=== PATIENT | male | born 1985 | race African-American/Black ===

== ENCOUNTER 2016-07-20 13:58 | Emergency (ER) | payer MEDICAID ==
[~2016-07-20] VITALS: Ht 170.2 cm; Wt 94.3 kg
[2016-07-20 14:21] VITALS: BP 137/79
[2016-07-20] MEDS ORDERED: Famotidine 20 MG/ 2ML VIAL IVP ONE (14:30)
--- NOTE | 2016-07-20 14:32 | Emergency Room Report ---
History of Present Illness General Chief Complaint: Abdominal Pain Source: Patient (Nahun Bauer M.D.) Present Illness HPI Patient presents with 2 days of vomiting he also feels weak because he hasn't been able to keep anything down. He tried Pepto-Bismol but threw that back up. He has epigastric pain and also a feeling of wooziness stent in his epigastric area. Does not radiate towards his back. Denies any diarrhea. He denies fevers or chills. He's not had a cough or sore throat. He also feels tingling and also like his throat is closing up when he gets short of breath. He denies alcohol. He's never had this before. No headache, rashes, joint pain, unilateral weakness. (Nahun Bauer M.D.) Allergies: Coded Allergies: PENICILLINS (Verified Allergy, Unknown, 07/20/16) SULFAMETHOXAZOLE (Verified Allergy, Unknown, 07/20/16) TRIMETHOPRIM (Verified Allergy, Unknown, 07/20/16) Uncoded Allergies: PENECILLIN (Allergy, Unknown, 07/20/16) Patient History Past Medical History: see triage record Social History: Reports: smoking, Denies: alcohol use Social History Narrative with girlfriend Reviewed Nursing Documentation: PMH: Agreed, PSxH: Agreed (Nahun Bauer M.D.) Nursing Documentation-PM Past Medical History: No Stated History (Nahun Bauer M.D.) Physical Exam Vital Signs Date Time Temp Pulse Resp B/P Pulse Ox O2 Delivery O2 Flow Rate FiO2 07/20/16 14:11 97.9 72 22 134/83 99 Room Air Sp02 EP Interpretation: reviewed, normal General Appearance: well appearing, no apparent distress, GCS 15 Head: normocephalic Eyes: bilateral eye PERRL, bilateral eye normal inspection ENT: moist mucus membranes Neck: supple Respiratory: lungs clear, normal breath sounds Cardiovascular #1: regular rate, rhythm Cardiovascular #2: 2+ radial (R) Gastrointestinal: normal inspection, normal bowel sounds, no mass, non- distended, no guarding, no rebound, tenderness - epigastric area Musculoskeletal: back normal, gait/station normal, normal range of motion Neurologic: alert, oriented x3, motor strength/tone normal, DTRs symmetric, sensory intact Psychiatric: anxious, other - tears Skin: normal inspection, warm/dry (Nahun Bauer M.D.) Medical Decision Making Diagnostic Impression: Primary Impression: Persistent vomiting Additional Impressions: Polycythemia Leukocytosis Qualified Codes: D72.829 - Elevated white blood cell count, unspecified Abdominal pain Qualified Codes: R10.13 - Epigastric pain ER Course Patient presents with epigastric pain and vomiting. He also feels weak. Differential includes dehydration, GERD, gastritis, peptic ulcer disease, pancreatitis amongst others. Urgent evaluation with labs EKG and abdominal and chest x-ray are ordered. Additionally she'll be given IV hydration, Zofran and Pepcid. Improved, but still vomiting. Second IV bolus and reglan and benadryl. Continued hydration with NS. Abdomen without guarding or rebound. Patient much improved but still feels weak. Admit med Dr. Messer. Laboratory Tests Test 07/20/16 14:15 07/20/16 14:53 Urine Color Yellow Urine Appearance Clear Urine pH 8 (4.5-8.0) Urine Specific [place] 1.015 (1.005-1.035) Urine Protein 1+ (NEGATIVE) H Urine Glucose (UA) Negative (NEGATIVE) Urine Ketones 4+ (NEGATIVE) H Urine Occult Blood Negative (NEGATIVE) Urine Nitrite Negative (NEGATIVE) Urine Bilirubin Negative (NEGATIVE) Urine Urobilinogen 1 MG/DL (0.0-1.0) H Urine Leukocyte Esterase 1+ (NEGATIVE) H Urine RBC 0-2 /HPF (0 - 0) H Urine WBC 2-4 /HPF (0 - 0) Urine Squamous Epithelial Cells Occasional /LPF Urine Bacteria Few /HPF (NONE) Urine Mucus Occasional /LPF Urine Opiates Screen Negative (NEGATIVE) Urine Barbiturates Screen Negative (NEGATIVE) Phencyclidine (PCP) Screen Negative (NEGATIVE) Urine Amphetamines Screen Negative (NEGATIVE) Urine Benzodiazepines Screen Negative (NEGATIVE) Urine Cocaine Screen Negative (NEGATIVE) Urine Marijuana (THC) Screen Positive (NEGATIVE) H White Blood Count 19.1 K/UL (4.8-10.8) H Red Blood Count 6.32 M/UL (4.70-6.10) H Hemoglobin 19.0 G/DL (14.2-18.0) *H Hematocrit 54.9 % (42.0-52.0) H Mean Corpuscular Volume 87 FL (80-99) Mean Corpuscular Hemoglobin 30.1 PG (27.0-31.0) Mean Corpuscular Hemoglobin Concent 34.7 G/DL (32.0-36.0) Red Cell Distribution Width 11.5 % (11.6-14.8) L Platelet Count 287 K/UL (150-450) Mean Platelet Volume 7.0 FL (6.5-10.1) Neutrophils (%) (Auto) % (45.0-75.0) Lymphocytes (%) (Auto) % (20.0-45.0) Monocytes (%) (Auto) % (1.0-10.0) Eosinophils (%) (Auto) % (0.0-3.0) Basophils (%) (Auto) % (0.0-2.0) Neutrophils % (Manual) Pending Lymphocytes % (Manual) Pending Platelet Estimate Pending Platelet Morphology Pending Prothrombin Time 10.2 SEC (9.30-11.50) Prothrombin Time INR 1.0 (0.9-1.1) PTT 28 SEC (23-33) Sodium Level 139 mEQ/L (135-145) Potassium Level 4.8 mEQ/L (3.4-4.9) Chloride Level 94 mEQ/L (98-107) L Carbon Dioxide Level 24 mEQ/L (20-30) Anion Gap 21 (5-15) H Blood Urea Nitrogen 18 mg/dL (7-23) Creatinine 1.1 mg/dL (0.7-1.2) Estimate Glomerular Filtration Rate > 60 mL/min (>60) Glucose Level 102 mg/dL (74-106) Calcium Level 10.4 mg/dL (8.6-10.2) H Total Bilirubin 0.8 mg/dL (0.0-1.2) Aspartate Amino Transferase (AST) 18 U/L (5-40) Alanine Aminotransferase (ALT) 10 U/L (3-41) Alkaline Phosphatase 91 U/L (40-129) Total Creatine Kinase 532 U/L (38-174) H Total Protein 8.9 g/dL (6.6-8.7) H Albumin 5.1 g/dL (3.5-5.2) Globulin 3.8 g/dL Albumin/Globulin Ratio 1.3 (1.0-2.7) Lipase 24 U/L (< 60) (Nahun Bauer M.D.) ER Course Patient signed out to me. He presented with epigastric pain and vomiting. He was very dehydrated. He received 3 L of IV fluid here. He is now feeling much better. Tolerating by mouth. Multiple recheck in his abdomen showed no pain. Specifically no pain in the right lower quadrant. Repeat CBC show elevated WBC but hemoglobin is stable. I suspect this is a viral gastritis/enteritis. Doubt acute abdomen. Doubt appendicitis. Explained this to the patient. He wanted to go home now. We'll discharge home via taxi. Told patient that if he is having fever or pain localized to right lower quadrant him out or not better in 12 hours to come back for CT scan. Patient expressed understanding. (AIRAM KAUR M.D.) EKG Diagnostic Results Rate: normal Rhythm: NSR ST Segments: no acute changes (Nahun Bauer M.D.) Rhythm Strip Diag. Results EP Interpretation: yes Rhythm: NSR, no PVC's, no ectopy (Nahun Bauer M.D.) Chest X-Ray Diagnostic Results EP Interpretation: Yes Findings: no consolidation, no effusion, no pneumothorax, no acute cardiopulmonary disease Number of Views: 1 (Nahun Bauer M.D.) Other X-Ray Diagnostic Results Other X-Ray Diagnostic Results : X-Ray Ordered: abd EP Interpretation: Yes Findings: other - paucity gas, no obstruction, NSBGP Number of Views: 2 (Nahun Bauer M.D.) Last Vital Signs Date Time Temp Pulse Resp B/P Pulse Ox O2 Delivery O2 Flow Rate FiO2 07/21/16 00:11 98.1 82 15 132/68 100 Room Air Status: improved (Nahun Bauer M.D.) Status: improved (AIRAM KAUR M.D.) Disposition: HOME, SELF-CARE Condition: Stable Scripts Ondansetron (Zofran) 4 Mg Tablet 4 MG ORAL Q6H Y for Nausea & Vomiting, #10 TAB 0 Refills Prov: AIRAM KAUR M.D. 07/20/16 Patient Instructions: Abdominal Pain, Adult Additional Instructions: Followup your DrOrquidea in 2-3 days. Return for increasing pain, fever, pain localizing to right lower quadrant, or not better in 12 hours. Return if worse. Nahun Bauer M.D. Jul 20, 2016 14:32 AIRAM KAUR M.D. Jul 20, 2016 23:37
[2016-07-20 14:56] LABS: APPEARANCE,URINE CLEAR; KETONES,URINE 4+ (NEGATIVE); LEUKOCYTE ESTERASE ,URINE 1+ (NEGATIVE); NITRITE,URINE NEGATIVE (NEGATIVE); PH,URINE 8 (4.5-8.0); PROTEIN,URINE 1+ (NEGATIVE); UROBILINOGEN,URINE 1 MG/DL (0.0-1.0)
[2016-07-20 15:06] LABS: BACTERIA,URINE FEW /HPF; MUCUS,URINE OCCASIONAL /LPF (NONE/OCC); RBC,URINE 0-2 /HPF (0 - 0); SQUAMOUS EPITHELIAL CELL,UR OCCASIONAL /LPF (NONE/OCC)
[2016-07-20 15:39] LABS: PROTHROMBIN TIME 10.2 SEC (9.30-11.50)
[2016-07-20 15:41] LABS: MEAN CORPUSCULAR HEMOGLOBIN 30.1 PG (27.0-31.0); MEAN CORPUSCULAR HGB CONC 34.7 G/DL (32.0-36.0); MEAN CORPUSCULAR VOLUME 87 FL (80-99); PLATELET COUNT 287 K/UL (150-450); RED BLOOD COUNT 6.32 M/UL (4.70-6.10); RED CELL DISTRIBUTION WIDTH 11.5 % (11.6-14.8); WHITE BLOOD COUNT 19.1 K/UL (4.8-10.8)
[2016-07-20 15:44] LABS: ALANINE AMINOTRANSFERASE 10 U/L (3-41); ALBUMIN/GLOBULIN RATIO 1.3 (1.0-2.7); ANION GAP 21 (5-15); ASPARTATE AMINO TRANSFERASE 18 U/L (5-40); CALCIUM 10.4 mg/dL (8.6-10.2); CARBON DIOXIDE 24 mEQ/L (20-30); CHLORIDE 94 mEQ/L (98-107); CREATININE 1.1 mg/dL (0.7-1.2); GLOMERULAR FILTRATION RATE > 60 mL/min (>60); HEMOLYSIS 8; LIPASE 24 U/L (< 60); POTASSIUM 4.8 mEQ/L (3.4-4.9); SODIUM 139 mEQ/L (135-145); TOTAL PROTEIN 8.9 g/dL (6.6-8.7)
[2016-07-20] MEDS ORDERED: DiphenhydrAMINE 50mg/ml Inj IVP ONE (16:30)
[2016-07-20] MEDS ORDERED: Metoclopramide 10mg/2ml Inj IVP ONE (16:30)
[2016-07-20 17:18] VITALS: BP 125/77
[2016-07-20 17:42] LABS: BAND NEUTROPHILS % (MANUAL) 1 % (0-8); BASOPHILS % (MANUAL) 0 % (0-2); EOSINOPHILS % (MANUAL) 0 % (0-3); LYMPHOCYTES % (MANUAL) 18 % (20-45); NEUTROPHILS % (MANUAL) 80 % (45-75); PLATELET ESTIMATE ADEQUATE; TOTAL CELLS COUNTED 100
[2016-07-20 17:43] LABS: PLATELET MORPHOLOGY NORMAL
[2016-07-20 19:02] VITALS: BP 119/79
[2016-07-20 20:38] VITALS: BP 128/68
[2016-07-20 23:16] LABS: MEAN CORPUSCULAR HEMOGLOBIN 29.7 PG (27.0-31.0); MEAN CORPUSCULAR HGB CONC 33.6 G/DL (32.0-36.0); MEAN CORPUSCULAR VOLUME 89 FL (80-99); MEAN PLATELET VOLUME 7.4 FL (6.5-10.1); PLATELET COUNT 257 K/UL (150-450); RED BLOOD COUNT 5.01 M/UL (4.70-6.10); RED CELL DISTRIBUTION WIDTH 11.3 % (11.6-14.8)
[2016-07-20] MEDS ORDERED: ZOFRAN4 MG ORAL (23:36)
[2016-07-21 00:09] VITALS: BP 132/68
[2016-07-21 00:11] VITALS: BP 132/68
[2016-07-21 08:38] LABS: BAND NEUTROPHILS % (MANUAL) 1 % (0-8); BASOPHILS % (MANUAL) 0 % (0-2); EOSINOPHILS % (MANUAL) 0 % (0-3); LYMPHOCYTES % (MANUAL) 23 % (20-45); NEUTROPHILS % (MANUAL) 70 % (45-75); PLATELET ESTIMATE ADEQUATE; PLATELET MORPHOLOGY NORMAL; TOTAL CELLS COUNTED 100
--- NOTE | 2016-07-21 08:49 | Diagnostic Imaging Report ---
Clinical history: Cough. Technique: Portable AP chest radiograph was obtained. Comparison: None Findings: The lungs are well inflated and clear. There is no pneumonia or pulmonary edema. There is no pleural effusion or pneumothorax. The cardiac and mediastinal silhouettes are normal in appearance. The bony thorax is unremarkable. Impression: No acute cardiopulmonary process.
--- NOTE | 2016-07-21 08:50 | Diagnostic Imaging Report ---
History: Acute abdominal pain. Technique: Frontal supine radiograph of the abdomen. Comparison: No prior study is available for comparison. FINDINGS: There is no bowel gas dilatation to suggest obstruction. Stool mixed with gas is seen extending throughout the colon to the rectum. The visualized lung bases are unremarkable. Impression: Nonspecific, nonobstructive bowel gas pattern.
--- NOTE | 2016-07-21 21:13 | Cardiology Report ---
APPROVED REPORT EKG Measurement Heart [id number] Normal sinus rhythm with sinus arrhythmia Normal ECG
== END 2016-07-21 00:12 | disposition home or self-care (01) ==
LOC: EMR 14:50 → EDBEDREQ 17:22 → EMR 07-21 00:12
DX: R11.10 Vomiting, unspecified (principal); D75.1 Secondary polycythemia; D72.829 Elevated white blood cell count, unspecified; R10.13 Epigastric pain; Z88.0 Allergy status to penicillin; Z88.2 Allergy status to sulfonamides; F17.200 Nicotine dependence, unspecified, uncomplicated
CPT/HCPCS: 36415; 71010; 74000; 80053; 80300; 81003; 82550; 83690; 85007; 85025; 85610; 85730; 93005; 96360; 96361; 96374; 96375; 99284; J1200; J2405; J2765; S0028

== ENCOUNTER 2016-09-01 17:25 | Emergency (ER) | payer MEDICAID ==
[~2016-09-01] VITALS: Ht 170.2 cm; Wt 90.3 kg
[~2016-09-01 17:25] MED LIST: ZOFRAN4 MG ORAL
[2016-09-01 19:19] VITALS: BP 138/79
[2016-09-01] MEDS ORDERED: ZOFRAN4 M3 ORAL (19:20)
[2016-09-01 19:52] VITALS: BP 138/79
--- NOTE | 2016-09-01 20:39 | Emergency Room Report ---
History of Present Illness General Chief Complaint: Nausea, Vomiting, and Diarrhea Source: Patient Present Illness HPI The patient is a 31-year-old male presenting for nausea, vomiting, and abdominal pain which began this morning. The patient states that he ate a questionable dinner and then began to experience the symptoms. Pain is described as a 7/10 dull ache to the mid-upper abdomen and is worse with vomiting. Patient denies any radiating pain. The patient states he has vomited 6 times this morning and has had 2 episodes of watery diarrhea. The patient denies other symptoms including F, chills, LEO, dizziness, blurred vision , SOB, CP, rash, Melena, hematochezia, hematemesis Allergies: Coded Allergies: PENICILLINS (Verified Allergy, Unknown, 07/20/16) SULFAMETHOXAZOLE (Verified Allergy, Unknown, 07/20/16) TRIMETHOPRIM (Verified Allergy, Unknown, 07/20/16) Uncoded Allergies: PENECILLIN (Allergy, Unknown, 07/20/16) Patient History Past Medical History: see triage record Pertinent Family History: none Reviewed Nursing Documentation: PMH: Agreed, PSxH: Agreed Nursing Documentation-PMH Past Medical History: No Stated History Review of Systems All Other Systems: negative except mentioned in HPI Physical Exam Vital Signs Date Time Temp Pulse Resp B/P Pulse Ox O2 Delivery O2 Flow Rate FiO2 09/01/16 17:45 97.7 72 28 143/82 99 Room Air Sp02 EP Interpretation: reviewed, normal General Appearance: no apparent distress, alert, GCS 15, non-toxic Head: normocephalic, atraumatic Eyes: bilateral eye PERRL, bilateral eye normal inspection ENT: hearing grossly normal, normal pharynx, no angioedema, normal voice Neck: full range of motion, supple/symm/no masses Respiratory: chest non-tender, lungs clear, normal breath sounds, speaking full sentences Cardiovascular #1: regular rate, rhythm, no edema Gastrointestinal: soft, no guarding, abnormal bowel sounds - increased, tenderness - epigastric Genitourinary: normal inspection, no CVA tenderness Musculoskeletal: back normal, gait/station normal, normal range of motion, non- tender Neurologic: alert, oriented x3, responsive, motor strength/tone normal, sensory intact, normal gait, speech normal Psychiatric: judgement/insight normal, memory normal, mood/affect normal, no suicidal/homicidal ideation Skin: normal color, no rash, warm/dry, well hydrated Lymphatic: no adenopathy Medical Decision Making PA Attestation Dr. Hernandez is my supervising physician. Patient management was discussed with my supervising physician Diagnostic Impression: Primary Impression: Gastroenteritis ER Course The patient is a 31-year-old male presenting for nausea, vomiting, and abdominal pain Differential diagnoses considered include but not limited to gastroenteritis, pancreatitis, appendicitis Physical exam: Vitals are within normal limits for no apparent distress Patient is resting on the gurney. Abdomen: Soft. No guarding. Nondistended. There are increased bowel sounds. Tenderness to palpation over the epigastric region only. Otherwise exam is unremarkable The patient is given IV fluids, Zofran and is feeling better. Patient is given time to rest. The patient is discharged home with instructions for brat diet and will take in plenty of fluids. Patient is given a prescription for Zofran. ER precautions are given Last Vital Signs Date Time Temp Pulse Resp B/P Pulse Ox O2 Delivery O2 Flow Rate FiO2 09/01/16 19:52 97.5 77 24 138/79 99 Room Air Status: improved Disposition: HOME, SELF-CARE Condition: Improved Scripts Ondansetron* (ZOFRAN*) 4 Mg Tablet 4 MG ORAL Q6H Y for Nausea & Vomiting, #15 TAB Prov: CIRO GAGNON 09/01/16 Patient Instructions: Viral Gastroenteritis, Adult, Food Choices to Help Relieve Diarrhea, Adult Additional Instructions: I discussed my findings with the patient. All questions and concerns have been answered. Treatment and medication compliance have been addressed. I advised the patient that they need to follow up with PMD in 3-5 days. Return to ED if symptoms worsen, new symptoms arise, or if needed for any reason. Patient verbalized understanding of discharge instructions. CIRO GAGNON Sep 01, 2016 20:39
== END 2016-09-01 19:54 | disposition home or self-care (01) ==
LOC: EMR 18:10
DX: K52.9 Noninfective gastroenteritis and colitis, unspecified (principal); Z88.2 Allergy status to sulfonamides; Z88.1 Allergy status to other antibiotic agents
CPT/HCPCS: 96360; 96374; 99284; J2405

== ENCOUNTER 2016-09-15 10:07 | Emergency (ER) | payer SELFPAY ==
[~2016-09-15] VITALS: Ht 170.2 cm; Wt 90.3 kg
[~2016-09-15 10:07] MED LIST changes: +ZOFRAN4 M3 ORAL
[2016-09-15] MEDS ORDERED: Famotidine 20 MG/ 2ML VIAL IVP ONE (10:30)
[2016-09-15] MEDS ORDERED: Dicyclomine HCl 10mg/5ml oral soln ORAL ONE (10:30)
[2016-09-15] MEDS ORDERED: Lidocaine 2% Visc 15ml soln ORAL ONE (10:30)
[2016-09-15] MEDS ORDERED: Mylanta II UD 30ml ORAL ONE (10:30)
[2016-09-15 11:04] VITALS: BP 131/80
[2016-09-15 11:20] LABS: APPEARANCE,URINE CLEAR; KETONES,URINE 3+ (NEGATIVE); LEUKOCYTE ESTERASE ,URINE 1+ (NEGATIVE); NITRITE,URINE NEGATIVE (NEGATIVE); PH,URINE 6.5 (4.5-8.0); PROTEIN,URINE 1+ (NEGATIVE); UROBILINOGEN,URINE NORMAL MG/DL (0.0-1.0)
[2016-09-15 11:31] LABS: BACTERIA,URINE FEW /HPF; MUCUS,URINE MODERATE /LPF (NONE/OCC); RBC,URINE 0-2 /HPF (0 - 0); SQUAMOUS EPITHELIAL CELL,UR OCCASIONAL /LPF (NONE/OCC)
[2016-09-15] MEDS ORDERED: Metoclopramide 10mg/2ml Inj IVP ONE (11:45)
[2016-09-15 12:00] VITALS: BP 132/82
[2016-09-15] MEDS ORDERED: ZOFRAN ODT4 MG ORAL (12:29)
[2016-09-15] MEDS ORDERED: RANITIDINE HCL150 MG ORAL (12:29)
[2016-09-15] MEDS ORDERED: BENTYL10 MG ORAL (12:29)
[2016-09-15 12:30] VITALS: BP 132/82
--- NOTE | 2016-09-18 14:04 | Emergency Room Report ---
History of Present Illness General Chief Complaint: Abdominal Pain Source: Patient Present Illness HPI 31-year-old male presents to ED for evaluation. States he's been having nausea and vomiting with diarrhea. States that she was seen here in late August for similar presentation. States he was treated in symptoms improved but have recurred. Denies any abdominal pain. Denies any fevers or chills. Denies recent antibiotic use. Sick contacts or recent travel. No other aggravating or relieving factors. Denies any other associated symptom Allergies: Coded Allergies: PENICILLINS (Verified Allergy, Unknown, 07/20/16) SULFAMETHOXAZOLE (Verified Allergy, Unknown, 07/20/16) TRIMETHOPRIM (Verified Allergy, Unknown, 07/20/16) Uncoded Allergies: PENECILLIN (Allergy, Unknown, 07/20/16) Patient History Past Medical History: none Past Surgical History: none Pertinent Family History: none Social History: Reports: drug use, Denies: alcohol use, smoking Immunizations: UTD Reviewed Nursing Documentation: PMH: Agreed, PSxH: Agreed Nursing Documentation-PMH Past Medical History: No Stated History Review of Systems All Other Systems: negative except mentioned in HPI Physical Exam Vital Signs Date Time Temp Pulse Resp B/P Pulse Ox O2 Delivery O2 Flow Rate FiO2 09/15/16 10:14 97.5 60 20 131/80 99 Room Air Sp02 EP Interpretation: reviewed, normal General Appearance: no apparent distress, alert, GCS 15, non-toxic Head: normocephalic Eyes: bilateral eye PERRL, bilateral eye normal inspection ENT: normal ENT inspection Neck: normal inspection Respiratory: chest non-tender, lungs clear, normal breath sounds, speaking full sentences Cardiovascular #1: regular rate, rhythm, no edema Gastrointestinal: normal bowel sounds, non tender, soft, non-distended, no guarding, no rebound Rectal: deferred Genitourinary: no CVA tenderness Musculoskeletal: normal inspection Neurologic: alert, oriented x3, responsive, motor strength/tone normal, sensory intact, speech normal Psychiatric: normal inspection Skin: normal inspection Lymphatic: normal inspection Medical Decision Making Diagnostic Impression: Primary Impression: Cyclical vomiting syndrome Qualified Codes: G43.A0 - Cyclical vomiting, not intractable Additional Impression: Gastroenteritis ER Course Hospital Course 31-year-old M presents to ED with nausea, vomiting, diarrhea differential diagnosis: gastritis, SBO, cholecystits, gastroenteritis Clinical course Patient placed on stretcher. 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 After initial history and physical I ordered labs, IV fluids, Zofran and Zantac Unable to draw blood but IV access established. Given IV fluids, Pepcid and Zofran U. tox positive for marijuana. I discussed findings with patient. Likely has gastroenteritis but also chronic marijuana use can be to cyclical vomiting syndrome. I feel this is a highly complex case requiring extensive working including EKG/ Rhythm strip, Xray/CT/US, Blood/urine lab work, repeat exams while in ED, and administration of strong opiates/narcotics for pain control, admission to hospital or close patient follow up. Diagnosis - gastroenteritis , cyclical vomiting syndrome Stable and discharged to home with prescriptions for Zantac, Zofran, Bentyl. Followup with PMD. Return to ED if symptoms recur or worsen Labs Test 09/15/16 10:55 Urine Color Yellow Urine Appearance Clear Urine pH 6.5 (4.5-8.0) Urine Specific [place] 1.020 (1.005-1.035) Urine Protein 1+ (NEGATIVE) Urine Glucose (UA) Negative (NEGATIVE) Urine Ketones 3+ (NEGATIVE) Urine Occult Blood Negative (NEGATIVE) Urine Nitrite Negative (NEGATIVE) Urine Bilirubin Negative (NEGATIVE) Urine Urobilinogen Normal MG/DL (0.0-1.0) Urine Leukocyte Esterase 1+ (NEGATIVE) Urine RBC 0-2 /HPF (0 - 0) Urine WBC 2-4 /HPF (0 - 0) Urine Squamous Epithelial Cells Occasional /LPF Urine Bacteria Few /HPF (NONE) Urine Mucus Moderate /LPF (NONE/OCC) Urine Opiates Screen Negative (NEGATIVE) Urine Barbiturates Screen Negative (NEGATIVE) Phencyclidine (PCP) Screen Negative (NEGATIVE) Urine Amphetamines Screen Negative (NEGATIVE) Urine Benzodiazepines Screen Negative (NEGATIVE) Urine Cocaine Screen Negative (NEGATIVE) Urine Marijuana (THC) Screen Positive (NEGATIVE) Last Vital Signs Date Time Temp Pulse Resp B/P Pulse Ox O2 Delivery O2 Flow Rate FiO2 09/15/16 12:30 97.5 63 13 132/82 98 Room Air Status: improved Disposition: HOME, SELF-CARE Condition: Stable Scripts Dicyclomine Hcl* (BENTYL*) 10 Mg Capsule 10 MG ORAL FOUR TIMES A DAY, #20 CAP Prov: EM FORRESTER M.D. 09/15/16 Ranitidine Hcl* (ZANTAC*) 150 Mg Tablet 150 MG ORAL TWICE A DAY, #30 TAB Prov: EM FORRESTER M.D. 09/15/16 Ondansetron Odt* (ZOFRAN ODT*) 4 Mg Tab.rapdis 4 MG ORAL Q6H Y for Nausea & Vomiting, #30 TAB 0 Refills Prov: EM FORRESTER M.D. 09/15/16 Patient Instructions: Viral Gastroenteritis, Adult EM FORRESTER M.D. Sep 18, 2016 14:04
== END 2016-09-15 12:41 | disposition home or self-care (01) ==
LOC: EMR 10:42
DX: G43.A0 Cyclical vomiting, in migraine, not intractable (principal); K52.9 Noninfective gastroenteritis and colitis, unspecified; Z88.0 Allergy status to penicillin; Z88.2 Allergy status to sulfonamides; Z88.8 Allergy status to other drugs, medicaments and biological substances
CPT/HCPCS: 80300; 81003; 96360; 96361; 96374; 96375; 99284; J2405; J2765; S0028

== ENCOUNTER 2016-10-04 15:53 | Emergency (ER) | payer SELFPAY ==
[~2016-10-04] VITALS: Ht 170.2 cm; Wt 90.7 kg
[~2016-10-04 15:53] MED LIST changes: +BENTYL10 MG ORAL; +RANITIDINE HCL150 MG ORAL; +ZOFRAN ODT4 MG ORAL
[2016-10-04] MEDS ORDERED: Metoclopramide 10mg/2ml Inj IM ONE (16:45)
[2016-10-04 17:10] LABS: APPEARANCE,URINE CLEAR; KETONES,URINE 3+ (NEGATIVE); LEUKOCYTE ESTERASE ,URINE 1+ (NEGATIVE); NITRITE,URINE NEGATIVE (NEGATIVE); PH,URINE 8 (4.5-8.0); PROTEIN,URINE 2+ (NEGATIVE); UROBILINOGEN,URINE NORMAL MG/DL (0.0-1.0)
[2016-10-04 17:13] LABS: MEAN CORPUSCULAR HEMOGLOBIN 31.8 PG (27.0-31.0); MEAN CORPUSCULAR HGB CONC 36.3 G/DL (32.0-36.0); MEAN CORPUSCULAR VOLUME 88 FL (80-99); MEAN PLATELET VOLUME 7.2 FL (6.5-10.1); PLATELET COUNT 286 K/UL (150-450); RED BLOOD COUNT 6.06 M/UL (4.70-6.10); RED CELL DISTRIBUTION WIDTH 11.9 % (11.6-14.8); WHITE BLOOD COUNT 19.2 K/UL (4.8-10.8)
[2016-10-04 17:22] LABS: BACTERIA,URINE FEW /HPF; RBC,URINE 0-2 /HPF (0 - 0)
[2016-10-04 17:27] LABS: ALANINE AMINOTRANSFERASE 9 U/L (3-41); ALBUMIN/GLOBULIN RATIO 1.2 (1.0-2.7); ANION GAP 19 (5-15); ASPARTATE AMINO TRANSFERASE 18 U/L (5-40); CARBON DIOXIDE 25 mEQ/L (20-30); CHLORIDE 96 mEQ/L (98-107); CREATININE 0.9 mg/dL (0.7-1.2); GLOMERULAR FILTRATION RATE > 60 mL/min (>60); HEMOLYSIS 6; LIPASE 18 U/L (< 60); POTASSIUM 4.3 mEQ/L (3.4-4.9); SODIUM 140 mEQ/L (135-145); TOTAL PROTEIN 8.5 g/dL (6.6-8.7)
[2016-10-04] MEDS ORDERED: Famotidine 20 MG/ 2ML VIAL IVP ONE (17:30)
[2016-10-04 17:54] LABS: BILIRUBIN,DIRECT 0.2 mg/dL (0.1-0.3)
--- NOTE | 2016-10-04 18:19 | Emergency Room Report ---
History of Present Illness General Chief Complaint: Nausea Source: Patient Present Illness HPI 31-year-old male presents emergency department complaining of multiple episodes of vomiting since this a.m. Patient states he has a history of cyclical vomiting syndrome. She denies abdominal pain other than cramping just prior to vomiting or dry heaves. Patient denies fevers or chills denies constipation or diarrhea. Patient denies recent illness contacts or travel. Patient states he has been evaluated twice in the past and was given oral anti-emetics which are not helping. he admits to continuing to smoke marijuana spite being educated on his last visit that this may be contributing to his symptoms. he denies blood in the vomit he denies dark tarry stools. Denies CP, Palpitations, LOC, AMS, dizziness, Changes in Vision, Sensation, paresthesias, or a sudden severe headache. Allergies: Coded Allergies: PENICILLINS (Verified Allergy, Unknown, 07/20/16) SULFAMETHOXAZOLE (Verified Allergy, Unknown, 07/20/16) TRIMETHOPRIM (Verified Allergy, Unknown, 07/20/16) Patient History Past Medical History: see triage record Past Surgical History: none Pertinent Family History: none Immunizations: UTD Reviewed Nursing Documentation: PMH: Agreed, PSxH: Agreed Nursing Documentation-PMH Past Medical History: No Stated History Review of Systems All Other Systems: negative except mentioned in HPI Physical Exam Vital Signs Date Time Temp Pulse Resp B/P Pulse Ox O2 Delivery O2 Flow Rate FiO2 10/04/16 16:22 98.1 66 22 131/86 100 Room Air Sp02 EP Interpretation: reviewed, normal General Appearance: no apparent distress, alert, GCS 15, non-toxic Head: normocephalic, atraumatic Eyes: bilateral eye PERRL, bilateral eye normal inspection ENT: hearing grossly normal, normal pharynx, no angioedema, normal voice Neck: full range of motion, supple/symm/no masses Respiratory: chest non-tender, lungs clear, normal breath sounds, speaking full sentences Cardiovascular #1: regular rate, rhythm, no edema, normal capillary refill Gastrointestinal: normal bowel sounds, soft, non-distended, no guarding, no rebound, other - Negative [place] signs, Negative MacBurney's sign, Negative Rosvigns Sign, Negative Psoas, No Peritoneal signs. mild epigastric TTP Rectal: deferred Musculoskeletal: back normal, gait/station normal, normal range of motion, non- tender Neurologic: alert, oriented x3, responsive, motor strength/tone normal, sensory intact, speech normal Psychiatric: judgement/insight normal, memory normal, mood/affect normal, anxious Skin: normal color, no rash, warm/dry, well hydrated Lymphatic: no adenopathy Medical Decision Making PA Attestation Dr. aragon is my supervising Physician whom patient management has been discussed with. Diagnostic Impression: Primary Impression: Cyclical vomiting syndrome Qualified Codes: G43.A0 - Cyclical vomiting, not intractable ER Course 31-year-old male presents emergency department complaining of multiple episodes of vomiting since this a.m. Patient states he has a history of cyclical vomiting syndrome. She denies abdominal pain other than cramping just prior to vomiting or dry heaves. Patient denies fevers or chills denies constipation or diarrhea. Patient denies recent illness contacts or travel. Patient states he has been evaluated twice in the past and was given oral anti-emetics which are not helping. he admits to continuing to smoke marijuana spite being educated on his last visit that this may be contributing to his symptoms. he denies blood in the vomit he denies dark tarry stools Ddx considered but are not limited to GE, colitis, acute appy, SBO, cyclical vomiting syndrome, dehydration Vital signs: pt. is afebrile, H&PE are most consistent with cyclical vomiting syndrome will do basic lab work. ORDERS: -CBC: elevated wbc's 19.2 review of pt. previous labs this is consistently his base line, pt. also has elevated RBC's -CMP: Unremarkable no appreciable electrolyte abnormality -Lipase: WNL -UDS: positive for THC and amphetamines -UA: WNL ED INTERVENTIONS: -500 NS iv hydration, -10mg Reglan - 1mg Ativan IV for nausea/vomiting -20mg Pepcid IV DISCHARGE: At this time pt. is stable for d/c to home, he is not able to tolerate oral fluids and a sandwich. Will provide printed patient care instructions, and any necessary prescriptions. Care plan and follow up instructions have been discussed with the patient prior to discharge. Labs Test 10/04/16 17:00 White Blood Count 19.2 K/UL (4.8-10.8) Red Blood Count 6.06 M/UL (4.70-6.10) Hemoglobin 19.3 G/DL (14.2-18.0) Hematocrit 53.0 % (42.0-52.0) Mean Corpuscular Volume 88 FL (80-99) Mean Corpuscular Hemoglobin 31.8 PG (27.0-31.0) Mean Corpuscular Hemoglobin Concent 36.3 G/DL (32.0-36.0) Red Cell Distribution Width 11.9 % (11.6-14.8) Platelet Count 286 K/UL (150-450) Mean Platelet Volume 7.2 FL (6.5-10.1) Neutrophils (%) (Auto) % (45.0-75.0) Lymphocytes (%) (Auto) % (20.0-45.0) Monocytes (%) (Auto) % (1.0-10.0) Eosinophils (%) (Auto) % (0.0-3.0) Basophils (%) (Auto) % (0.0-2.0) Differential Total Cells Counted 100 Neutrophils % (Manual) 84 % (45-75) Lymphocytes % (Manual) 11 % (20-45) Monocytes % (Manual) 3 % (1-10) Eosinophils % (Manual) 0 % (0-3) Basophils % (Manual) 0 % (0-2) Band Neutrophils 2 % (0-8) Platelet Estimate Adequate Platelet Morphology Normal Red Blood Cell Morphology Normal Urine Color Yellow Urine Appearance Clear Urine pH 8 (4.5-8.0) Urine Specific [place] 1.010 (1.005-1.035) Urine Protein 2+ (NEGATIVE) Urine Glucose (UA) Negative (NEGATIVE) Urine Ketones 3+ (NEGATIVE) Urine Occult Blood Negative (NEGATIVE) Urine Nitrite Negative (NEGATIVE) Urine Bilirubin Negative (NEGATIVE) Urine Urobilinogen Normal MG/DL (0.0-1.0) Urine Leukocyte Esterase 1+ (NEGATIVE) Urine RBC 0-2 /HPF (0 - 0) Urine WBC 2-4 /HPF (0 - 0) Urine Squamous Epithelial Cells None /LPF (NONE/OCC) Urine Bacteria Few /HPF (NONE) Sodium Level 140 mEQ/L (135-145) Potassium Level 4.3 mEQ/L (3.4-4.9) Chloride Level 96 mEQ/L (98-107) Carbon Dioxide Level 25 mEQ/L (20-30) Anion Gap 19 (5-15) Blood Urea Nitrogen 14 mg/dL (7-23) Creatinine 0.9 mg/dL (0.7-1.2) Estimat Glomerular Filtration Rate > 60 mL/min (>60) Glucose Level 125 mg/dL (74-106) Calcium Level 10.0 mg/dL (8.6-10.2) Total Bilirubin 1.2 mg/dL (0.0-1.2) Direct Bilirubin 0.2 mg/dL (0.1-0.3) Aspartate Amino Transf (AST/SGOT) 18 U/L (5-40) Alanine Aminotransferase (ALT/SGPT) 9 U/L (3-41) Alkaline Phosphatase 98 U/L (40-129) Total Protein 8.5 g/dL (6.6-8.7) Albumin 4.8 g/dL (3.5-5.2) Globulin 3.7 g/dL Albumin/Globulin Ratio 1.2 (1.0-2.7) Lipase 18 U/L (< 60) Urine Opiates Screen Negative (NEGATIVE) Urine Barbiturates Screen Negative (NEGATIVE) Phencyclidine (PCP) Screen Negative (NEGATIVE) Urine Amphetamines Screen Positive (NEGATIVE) Urine Benzodiazepines Screen Negative (NEGATIVE) Urine Cocaine Screen Negative (NEGATIVE) Urine Marijuana (THC) Screen Positive (NEGATIVE) Last Vital Signs Date Time Temp Pulse Resp B/P Pulse Ox O2 Delivery O2 Flow Rate FiO2 10/04/16 16:22 98.1 66 22 131/86 100 Room Air Disposition: HOME, SELF-CARE Condition: Stable Scripts [reglan] No Conflict Check 10 MG RECTAL TID for Nausea & Vomiting, #20 SUPP Prov: Nisha Miramontes P.A. 10/04/16 Ranitidine Hcl* (ZANTAC*) 150 Mg Tablet 150 MG ORAL DAILY, #30 TAB 0 Refills Prov: Nisha Miramontes P.A. 10/04/16 Metoclopramide Hcl* (REGLAN*) 10 Mg Tablet 10 MG ORAL THREE TIMES A DAY, #20 TAB Prov: Nisha Miramontes P.A. 10/04/16 Referrals: NOT CHOSEN [facility]/MD,REFERRING (PCP) Patient Instructions: Nausea and Vomiting, Adult Additional Instructions: Take medications as directed. Follow up with PCP in 3-5 days Return sooner to ED if new symptoms occur, or current symptoms become worse. - Please note that this Emergency Department Report was dictated using [employer] technology software, occasionally this can lead to erroneous entry secondary to interpretation by the dictation equipment. Nisha Miramontes Oct 04, 2016 18:19
[2016-10-04] MEDS ORDERED: REGLAN10 MG ORAL (18:35)
[2016-10-04] MEDS ORDERED: ZANTAC150 MG ORAL (18:35)
[2016-10-04] MEDS ORDERED: reglan RECTAL (18:56)
[2016-10-04] MEDS ORDERED: LORazepam Inj 2mg/ml 1ml IV ONE (19:00)
[2016-10-04 19:01] LABS: BAND NEUTROPHILS % (MANUAL) 2 % (0-8); BASOPHILS % (MANUAL) 0 % (0-2); EOSINOPHILS % (MANUAL) 0 % (0-3); LYMPHOCYTES % (MANUAL) 11 % (20-45); NEUTROPHILS % (MANUAL) 84 % (45-75); PLATELET ESTIMATE ADEQUATE; PLATELET MORPHOLOGY NORMAL; TOTAL CELLS COUNTED 100
[2016-10-04 19:15] VITALS: BP 127/71
[2016-10-04 19:35] VITALS: BP 127/71
== END 2016-10-04 19:35 | disposition home or self-care (01) ==
LOC: EMR 16:45
DX: G43.A0 Cyclical vomiting, in migraine, not intractable (principal)
CPT/HCPCS: 36415; 80053; 80300; 81003; 82248; 83690; 85007; 85025; 96360; 96372; 96374; 96375; 99284; J2765; J7040; S0028

== ENCOUNTER 2017-02-07 11:59 | Inpatient (IN) | payer MEDICAID ==
[2017-02-07] VITALS (7 sets, daily range): BP systolic 98–157; BP diastolic 57–71
[~2017-02-07] VITALS: Ht 170.2 cm; Wt 31.8 kg
[~2017-02-07 11:59] MED LIST changes: +REGLAN10 MG ORAL; +ZANTAC150 MG ORAL; +reglan RECTAL
[2017-02-07] MEDS ORDERED: Metoclopramide 10mg/2ml Inj IVP ONE (12:30)
[2017-02-07] MEDS ORDERED: DiphenhydrAMINE 50mg/ml Inj IVP ONE (12:30)
[2017-02-07] MEDS ORDERED: Famotidine 20 MG/ 2ML VIAL IVP ONE (12:30)
[2017-02-07 12:57] LABS: APPEARANCE,URINE CLEAR; KETONES,URINE 4+ (NEGATIVE); LEUKOCYTE ESTERASE ,URINE 1+ (NEGATIVE); NITRITE,URINE NEGATIVE (NEGATIVE); PH,URINE 9 (4.5-8.0); PROTEIN,URINE 2+ (NEGATIVE); UROBILINOGEN,URINE NORMAL MG/DL (0.0-1.0)
[2017-02-07 12:58] LABS: MEAN CORPUSCULAR HEMOGLOBIN 29.4 PG (27.0-31.0); MEAN CORPUSCULAR HGB CONC 32.9 G/DL (32.0-36.0); MEAN CORPUSCULAR VOLUME 89 FL (80-99); MEAN PLATELET VOLUME 7.2 FL (6.5-10.1); PLATELET COUNT 285 K/UL (150-450); RED BLOOD COUNT 5.77 M/UL (4.70-6.10); WHITE BLOOD COUNT 16.1 K/UL (4.8-10.8)
[2017-02-07 13:06] LABS: PROTHROMBIN TIME 10.3 SEC (9.30-11.50)
[2017-02-07 13:06] LABS: BACTERIA,URINE FEW /HPF; RBC,URINE 0-2 /HPF (0 - 0); SQUAMOUS EPITHELIAL CELL,UR OCCASIONAL /LPF (NONE/OCC)
[2017-02-07 13:07] LABS: MUCUS,URINE FEW /LPF (NONE/OCC)
[2017-02-07 13:10] LABS: ALANINE AMINOTRANSFERASE 14 U/L (3-41); ALBUMIN/GLOBULIN RATIO 1.4 (1.0-2.7); ANION GAP 15 (5-15); ASPARTATE AMINO TRANSFERASE 19 U/L (5-40); CALCIUM 10.4 mg/dL (8.6-10.2); CARBON DIOXIDE 23 mEQ/L (20-30); CHLORIDE 104 mEQ/L (98-107); GLOMERULAR FILTRATION RATE > 60 mL/min (>60); HEMOLYSIS 8; LIPASE 17 U/L (< 60); POTASSIUM 3.9 mEQ/L (3.4-4.9); SODIUM 142 mEQ/L (135-145); TOTAL PROTEIN 8.1 g/dL (6.6-8.7)
[2017-02-07 13:19] LABS: BAND NEUTROPHILS % (MANUAL) 0 % (0-8); BASOPHILS % (MANUAL) 0 % (0-2); EOSINOPHILS % (MANUAL) 0 % (0-3); LYMPHOCYTES % (MANUAL) 9 % (20-45); NEUTROPHILS % (MANUAL) 88 % (45-75); PLATELET ESTIMATE ADEQUATE; PLATELET MORPHOLOGY NORMAL; TOTAL CELLS COUNTED 100
[2017-02-07 13:27] LABS: BILIRUBIN,DIRECT 0.2 mg/dL (0.1-0.3)
--- NOTE | 2017-02-07 13:40 | Diagnostic Imaging Report ---
Indication: Abdominal pain Comparison: None Single view of the abdomen obtained Findings: Bowel gas pattern is nonspecific although there is posterior bowel gas limit evaluation. No mass, ectopic calcifications, or abnormal gas collections are identified. The bones are unremarkable. Impression: No acute findings
--- NOTE | 2017-02-07 15:32 | Emergency Room Report ---
History of Present Illness General Chief Complaint: Vomiting Source: Patient Present Illness HPI Patient presents with vomiting. He is vomiting bile this time. Denies any blood. He denies any serious epigastric pain at this time but feels discomfort and dizziness. He's been smoking and not been able to keep anything down. He feels dizziness when he stands. Denies any fevers. There's no diarrhea. Pain throughout body and LEO = 7/10, achiness, generalized. Not taken any medicines. He's seen here multiple times for cyclical vomiting but usually gets better. He has no Zofran. He does have medicine for pain. Unable to keep this down. He denies any alcohol recently. No fevers, melena, dysuria, cough, sore throat. Depressed at recurrence of problem though no SI or HI. No rashes. Allergies: Coded Allergies: PENICILLINS (Verified Allergy, Unknown, 07/20/16) SULFAMETHOXAZOLE (Verified Allergy, Unknown, 07/20/16) TRIMETHOPRIM (Verified Allergy, Unknown, 07/20/16) Patient History Past Medical History: see triage record Social History: Reports: smoking, alcohol use, drug use - thc Social History Narrative with sig other Reviewed Nursing Documentation: PMH: Agreed, PSxH: Agreed Nursing Documentation-PMH Hx Cardiac Problems: No - hemroids Hx Gastrointestinal Problems: Yes Review of Systems All Other Systems: negative except mentioned in HPI Physical Exam Vital Signs Date Time Temp Pulse Resp B/P (MAP) Pulse Ox O2 Delivery O2 Flow Rate FiO2 02/07/17 12:02 97.9 71 22 154/110 99 Room Air Sp02 EP Interpretation: reviewed, normal General Appearance: GCS 15, mild distress Head: normocephalic Eyes: bilateral eye normal inspection, bilateral eye PERRL ENT: moist mucus membranes Neck: supple Respiratory: lungs clear, normal breath sounds Cardiovascular #1: regular rate, rhythm Cardiovascular #2: 2+ radial (R) Gastrointestinal: soft, non-distended, no rebound, tenderness, other - vomit = bile = guaiac negative Musculoskeletal: back normal, gait/station normal, normal range of motion Neurologic: alert, oriented x3, grossly normal Psychiatric: depressed affect, anxious Skin: normal inspection, warm/dry Medical Decision Making Diagnostic Impression: Primary Impression: Intractable vomiting Qualified Codes: G43.A1 - Cyclical vomiting, intractable Additional Impression: Leukocytosis ER Course Patient presents with vomiting. Ddx: gastritis, cyclical vomiting, GERD, GItis , anxiety, pancreatitis amongst others. Patient needs evaluation with labs, xrays. Treatment with pepcid, reglan, benadryl and hydration. Labs with leukocytosis (less than prior visits). ABD with paucity of gas. Patient continues to vomit. He still feels weak. He wants the out but even water gets vomited back up. His bile in the vomit and this is guaiac-negative. Both zofran and reglan given. Patient still vomiting and feeling weak - admission to the hospital for further treatment. RN thought "dark" vomitus. Tested negative for blood. Admit med Dr. Neves. Laboratory Tests Test 02/07/17 12:25 02/07/17 12:30 White Blood Count 16.1 K/UL (4.8-10.8) H Red Blood Count 5.77 M/UL (4.70-6.10) Hemoglobin 17.0 G/DL (14.2-18.0) Hematocrit 51.6 % (42.0-52.0) Mean Corpuscular Volume 89 FL (80-99) Mean Corpuscular Hemoglobin 29.4 PG (27.0-31.0) Mean Corpuscular Hemoglobin Concent 32.9 G/DL (32.0-36.0) Red Cell Distribution Width 11.0 % (11.6-14.8) L Platelet Count 285 K/UL (150-450) Mean Platelet Volume 7.2 FL (6.5-10.1) Neutrophils (%) (Auto) % (45.0-75.0) Lymphocytes (%) (Auto) % (20.0-45.0) Monocytes (%) (Auto) % (1.0-10.0) Eosinophils (%) (Auto) % (0.0-3.0) Basophils (%) (Auto) % (0.0-2.0) Differential Total Cells Counted 100 Neutrophils % (Manual) 88 % (45-75) H Lymphocytes % (Manual) 9 % (20-45) L Monocytes % (Manual) 3 % (1-10) Eosinophils % (Manual) 0 % (0-3) Basophils % (Manual) 0 % (0-2) Band Neutrophils 0 % (0-8) Platelet Estimate Adequate Platelet Morphology Normal Red Blood Cell Morphology Normal Prothrombin Time 10.3 SEC (9.30-11.50) Prothrombin Time INR 1.0 (0.9-1.1) PTT 27 SEC (23-33) Sodium Level 142 mEQ/L (135-145) Potassium Level 3.9 mEQ/L (3.4-4.9) Chloride Level 104 mEQ/L (98-107) Carbon Dioxide Level 23 mEQ/L (20-30) Anion Gap 15 (5-15) Blood Urea Nitrogen 12 mg/dL (7-23) Creatinine 1.0 mg/dL (0.7-1.2) Estimate Glomerular Filtration Rate > 60 mL/min (>60) Glucose Level 125 mg/dL (74-106) H Calcium Level 10.4 mg/dL (8.6-10.2) H Total Bilirubin 1.3 mg/dL (0.0-1.2) H Direct Bilirubin 0.2 mg/dL (0.1-0.3) Aspartate Amino Transferase (AST) 19 U/L (5-40) Alanine Aminotransferase (ALT) 14 U/L (3-41) Alkaline Phosphatase 78 U/L (40-129) Total Creatine Kinase 283 U/L (38-174) H Total Protein 8.1 g/dL (6.6-8.7) Albumin 4.8 g/dL (3.5-5.2) Globulin 3.3 g/dL Albumin/Globulin Ratio 1.4 (1.0-2.7) Lipase 17 U/L (< 60) Urine Color Yellow Urine Appearance Clear Urine pH 9 (4.5-8.0) Urine Specific [place] 1.015 (1.005-1.035) Urine Protein 2+ (NEGATIVE) H Urine Glucose (UA) Negative (NEGATIVE) Urine Ketones 4+ (NEGATIVE) H Urine Occult Blood Negative (NEGATIVE) Urine Nitrite Negative (NEGATIVE) Urine Bilirubin Negative (NEGATIVE) Urine Urobilinogen Normal MG/DL (0.0-1.0) Urine Leukocyte Esterase 1+ (NEGATIVE) H Urine RBC 0-2 /HPF (0 - 0) H Urine WBC 2-4 /HPF (0 - 0) Urine Squamous Epithelial Cells Occasional /LPF Urine Bacteria Few /HPF (NONE) Urine Mucus Few /LPF (NONE/OCC) H Urine Opiates Screen Negative (NEGATIVE) Urine Barbiturates Screen Negative (NEGATIVE) Phencyclidine (PCP) Screen Negative (NEGATIVE) Urine Amphetamines Screen Negative (NEGATIVE) Urine Benzodiazepines Screen Negative (NEGATIVE) Urine Cocaine Screen Negative (NEGATIVE) Urine Marijuana (THC) Screen Positive (NEGATIVE) H Other X-Ray Diagnostic Results Other X-Ray Diagnostic Results : # of Views/Limited Vs Complete: 1 View Indication: Other EP Interpretation: Yes Interpretation: nonspecific bowel gas, no sbo, other - no masses, paucity of gas Impression: Other Interpreting ER Provider: signed Nahun Bauer MD Last Vital Signs Date Time Temp Pulse Resp B/P (MAP) Pulse Ox O2 Delivery O2 Flow Rate FiO2 02/07/17 20:04 99.1 85 18 116/63 97 Room Air Status: improved Disposition: ADMITTED INPATIENT Condition: Serious Referrals: NOT CHOSEN [facility]/,REFERRING (PCP) Nahun Bauer M.D. Feb 07, 2017 15:32
[2017-02-07] MEDS ORDERED: LORazepam Inj 2mg/ml 1ml IV ONE (16:30)
[2017-02-07] MEDS ORDERED: Esomeprazole sodium 40mg vial IVP ONE (16:30)
[2017-02-07] MEDS: D5 1/2NS w/KCl 20mEq 1,000 ML IV SCH (23:54)
[2017-02-08 04:23] VITALS: BP 125/74
[2017-02-08] MEDS: LORazepam Inj 2mg/ml 1ml IV SCH ×2 (04:30→08:05)
[2017-02-08] MEDS: D5 1/2NS w/KCl 20mEq 1,000 ML IV SCH ×2 (04:41→10:26)
--- NOTE | 2017-02-08 06:00 | History and Physical Report ---
DATE OF ADMISSION: 02/07/2017 CHIEF COMPLAINT AND REASON FOR HOSPITALIZATION: The patient was admitted with uncontrolled nausea and vomiting. HISTORY OF PRESENT ILLNESS: The patient is a 32-year-old male who has been in the emergency room several times with vomiting attributed to cyclic vomiting. He says he was out in the hot weather and it is 90 to 100 degrees today and he has been drinking very little fluids and smoking a lot of cigarettes and occasional marijuana. He has recurrent nausea and vomiting uncontrolled and was taken to the emergency room. There is no hematochezia or melena. No definite history of ulcers or GI bleeding. He has had several hospital emergency room visits for the above. PAST SURGICAL HISTORY: [place] teeth, tonsillectomy, and abscess in the neck. ALLERGIES: Penicillin, sulfa, and Bactrim. HABITS: He is a cigarette smoker and occasional marijuana and alcohol about every 4 months. Denies other drugs. SOCIAL HISTORY: His is about to have their first child soon. 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 SYSTEM REVIEW: HEENT: Vision and hearing are good. ENDOCRINE: No known diabetes or thyroid disease. PULMONARY: No chronic cough, asthma, or TB. CARDIAC: No angina, myocardial infarction, or palpitations. GASTROINTESTINAL: Recurrent nausea and vomiting as above. No definite ulcers. GENITOURINARY: No dysuria, hematuria, or kidney stones. NEUROLOGIC: No CVA, syncope, or seizures. PHYSICAL EXAMINATION: GENERAL: The patient is alert, muscular man, uncomfortable in bed. VITAL SIGNS: Temperature 97.9, pulse 70, respirations 19, and blood pressure 142/78. HEENT: Sclerae are nonicteric. Ocular motions intact in all directions. Oral mucosa is slightly dry. NECK: No adenopathy or thyroid enlargement. LUNGS: Clear. HEART: Regular rhythm. No murmur. ABDOMEN: Soft. No focal tenderness. Liver and spleen are nonpalpable. EXTREMITIES: No edema, cyanosis, or clubbing. NEUROLOGIC: He is alert and oriented. Cranial nerves are intact. PERTINENT LABORATORIES: White count 16.1 and hemoglobin 17. BUN 12, creatinine 1, sodium 142, potassium 3.9, glucose 125, calcium 10.4, bilirubin is 1.2 and direct 0.2. CK is 283. Toxicology screen is positive for THC. IMPRESSION: 1. Uncontrolled nausea and vomiting. Possible cyclic vomiting syndrome. Possible esophagitis, gastritis, or other abdominal problems associated with leukocytosis. 2. Heat exposure and possible very early heat exhaustion. 3. Positive drug screen for marijuana. Possible toxicity from above. 4. Mild elevation of glucose. 5. Mild elevation of bilirubin and calcium and creatine kinase. PLAN: The patient will be hydrated and given symptomatic care with antiulcer agents and antianxiety and antinausea medication. Osmin Neves M.D. DR: COLTEN JOB#: [id number] CC:
[2017-02-08 08:00] VITALS: BP 143/84
[2017-02-08] MEDS ORDERED: NKM (10:05)
--- NOTE | 2017-02-08 23:00 | Discharge Summary ---
DATE OF ADMISSION: 02/07/2017 DATE OF DISCHARGE: 02/08/2017 PERTINENT HISTORY: The patient presented to the emergency room with uncontrolled nausea and vomiting. He has had this before and was attributed to cyclic vomiting syndrome. He was unable to hold down liquids and diet. He also has had recent anxiety issues, heavy cigarette smoking, and occasional marijuana. PERTINENT PHYSICAL FINDINGS: Exam was negative except for slightly dry oral mucosa. COURSE IN THE HOSPITAL: The patient was given IV hydration and observed. He also was given some Ativan, symptomatic treatment of his nausea and vomiting and IV Zantac. With the above treatment, he felt well. On the day of discharge, his vital signs were stable. Lungs clear. Heart regular rhythm. He felt well and wanted to eat and wanted to go home and he was discharged home in stable condition. FINAL DIAGNOSES: 1. Cyclic vomiting syndrome. 2. Dehydration. 3. Nausea and vomiting, nonspecific. 4. History of heavy cigarette smoking. 5. Positive drug screen for marijuana. DISCHARGE DISPOSITION: Home on a regular diet as tolerated and encourage fluids. Osmin Neves M.D. DR: Himanshu JOB#: [id number] CC:
== END 2017-02-08 10:20 | disposition home or self-care (01) | DRG 422 ==
LOC: EMR 13:14 → 4E 15:09 → EDBEDREQ 16:41
DX: E86.0 Dehydration (principal); F12.90 Cannabis use, unspecified, uncomplicated; G43.A0 Cyclical vomiting, in migraine, not intractable; Z72.0 Tobacco use
CPT/HCPCS: 36415; 74000; 80053; 80300; 81003; 82150; 82248; 82550; 83690; 85007; 85025; 85610; 85730; 99285; J2405; J2765

== ENCOUNTER 2017-03-01 12:23 | Emergency (ER) | payer MEDICAID ==
[~2017-03-01] VITALS: Ht 170.2 cm; Wt 92.5 kg
[~2017-03-01 12:23] MED LIST changes: +NKM
[2017-03-01] MEDS ORDERED: Haloperidol 5mg/ml Inj IM ONE (13:15)
--- NOTE | 2017-03-01 13:31 | Emergency Room Report ---
History of Present Illness General Chief Complaint: General Complaint Source: Patient, EMS Present Illness HPI Patient is a 32-year-old male who presented after increased vomiting. She gradual onset of symptoms. Patient prior history of cyclic vomiting syndrome. Patient previous visits for similar type symptoms in the past. The patient reports recent marijuana use. Patient had previously been advised to discontinue use however he stated this didn't change his symptoms and began smoking again. The patient had not been having any diarrhea. He reports having epigastric pain. He reports having multiple episodes of emesis. Allergies: Coded Allergies: PENICILLINS (Verified Allergy, Unknown, 07/20/16) SULFAMETHOXAZOLE (Verified Allergy, Unknown, 07/20/16) TRIMETHOPRIM (Verified Allergy, Unknown, 07/20/16) Patient History Past Medical History: see triage record Reviewed Nursing Documentation: PMH: Agreed, PSxH: Agreed Nursing Documentation-PMH Hx Cardiac Problems: No Hx Cancer: No Hx Gastrointestinal Problems: Yes Hx Neurological Problems: No Review of Systems All Other Systems: negative except mentioned in HPI Physical Exam Vital Signs Date Time Temp Pulse Resp B/P (MAP) Pulse Ox O2 Delivery O2 Flow Rate FiO2 03/01/17 12:45 98.1 75 16 136/89 99 Room Air Sp02 EP Interpretation: reviewed, normal General Appearance: normal inspection, well appearing, no apparent distress, alert, GCS 15 Head: atraumatic ENT: normal ENT inspection, hearing grossly normal, normal voice Neck: normal inspection, full range of motion, supple, no bony tend Respiratory: normal inspection, lungs clear, normal breath sounds, no respiratory distress, no retraction, no wheezing Cardiovascular #1: regular rate, rhythm, no edema Gastrointestinal: normal inspection, normal bowel sounds, non tender, soft, no guarding, no hernia Genitourinary: no CVA tenderness Musculoskeletal: normal inspection, back normal, normal range of motion Neurologic: normal inspection, alert, oriented x3, responsive, manager of recruiting III-XII nml as tested, speech normal Psychiatric: normal inspection, judgement/insight normal, mood/affect normal Skin: normal inspection, normal color, no rash Medical Decision Making Diagnostic Impression: Primary Impression: Cyclical vomiting syndrome Additional Impression: Dehydration ER Course Patient presented for abdominal pain. Differential diagnoses included ischemic bowel, appendicitis, perforated viscus, abdominal aortic aneurysm, inferior myocardial infarction, viral gastroenteritis. Because of complexity of patient' s case laboratory testing and imaging studies were ordered.The patient was given Haldol for presumed acid of vomiting syndrome. Patient had previously been diagnosed. Patient started on IV fluids. The patient was noted to have elevation of his hemoglobin as well as white blood count consistent with some dehydration. The patient was again advised to discontinue marijuana use. The patient is advised to follow up with primary care doctor in 1-2 days. Patient is advised to return if any worsening condition or if any changes in status that are concerning. Labs Test 03/01/17 13:40 White Blood Count 16.7 K/UL (4.8-10.8) Red Blood Count 5.65 M/UL (4.70-6.10) Hemoglobin 17.2 G/DL (14.2-18.0) Hematocrit 50.3 % (42.0-52.0) Mean Corpuscular Volume 89 FL (80-99) Mean Corpuscular Hemoglobin 30.4 PG (27.0-31.0) Mean Corpuscular Hemoglobin Concent 34.1 G/DL (32.0-36.0) Red Cell Distribution Width 11.1 % (11.6-14.8) Platelet Count 319 K/UL (150-450) Mean Platelet Volume 7.3 FL (6.5-10.1) Neutrophils (%) (Auto) % (45.0-75.0) Lymphocytes (%) (Auto) % (20.0-45.0) Monocytes (%) (Auto) % (1.0-10.0) Eosinophils (%) (Auto) % (0.0-3.0) Basophils (%) (Auto) % (0.0-2.0) Urine Color Yellow Urine Appearance Clear Urine pH 9 (4.5-8.0) Urine Specific [place] 1.015 (1.005-1.035) Urine Protein 1+ (NEGATIVE) Urine Glucose (UA) Negative (NEGATIVE) Urine Ketones 3+ (NEGATIVE) Urine Occult Blood Negative (NEGATIVE) Urine Nitrite Negative (NEGATIVE) Urine Bilirubin Negative (NEGATIVE) Urine Urobilinogen Normal MG/DL (0.0-1.0) Urine Leukocyte Esterase 1+ (NEGATIVE) Urine RBC 2-4 /HPF (0 - 0) Urine WBC 2-4 /HPF (0 - 0) Urine Squamous Epithelial Cells Occasional /LPF Urine Bacteria Few /HPF (NONE) Urine Mucus Few /LPF (NONE/OCC) Sodium Level 141 mEQ/L (135-145) Potassium Level 4.1 mEQ/L (3.4-4.9) Chloride Level 103 mEQ/L (98-107) Carbon Dioxide Level 23 mEQ/L (20-30) Anion Gap 15 (5-15) Blood Urea Nitrogen 10 mg/dL (7-23) Creatinine 0.8 mg/dL (0.7-1.2) Estimat Glomerular Filtration Rate > 60 mL/min (>60) Glucose Level 125 mg/dL (74-106) Calcium Level 9.9 mg/dL (8.6-10.2) Total Bilirubin 1.0 mg/dL (0.0-1.2) Aspartate Amino Transf (AST/SGOT) 18 U/L (5-40) Alanine Aminotransferase (ALT/SGPT) 15 U/L (3-41) Alkaline Phosphatase 89 U/L (40-129) Total Protein 8.1 g/dL (6.6-8.7) Albumin 4.6 g/dL (3.5-5.2) Globulin 3.5 g/dL Albumin/Globulin Ratio 1.3 (1.0-2.7) Lipase 22 U/L (< 60) Last Vital Signs Date Time Temp Pulse Resp B/P (MAP) Pulse Ox O2 Delivery O2 Flow Rate FiO2 03/01/17 12:45 98.1 75 16 136/89 99 Room Air Status: improved Scripts Ondansetron (Zofran) 4 Mg Tablet 4 MG ORAL Q6H Y for Nausea & Vomiting, #30 TAB 0 Refills Prov: Nathaniel Hernandez 03/01/17 Referrals: [facility]OS[facility]/,REFERRING (PCP) Nathaniel Hernandez Mar 01, 2017 13:31
[2017-03-01 14:07] LABS: APPEARANCE,URINE CLEAR; KETONES,URINE 3+ (NEGATIVE); LEUKOCYTE ESTERASE ,URINE 1+ (NEGATIVE); NITRITE,URINE NEGATIVE (NEGATIVE); PH,URINE 9 (4.5-8.0); PROTEIN,URINE 1+ (NEGATIVE); UROBILINOGEN,URINE NORMAL MG/DL (0.0-1.0)
[2017-03-01 14:12] LABS: MEAN CORPUSCULAR HEMOGLOBIN 30.4 PG (27.0-31.0); MEAN CORPUSCULAR HGB CONC 34.1 G/DL (32.0-36.0); MEAN CORPUSCULAR VOLUME 89 FL (80-99); MEAN PLATELET VOLUME 7.3 FL (6.5-10.1); PLATELET COUNT 319 K/UL (150-450); RED BLOOD COUNT 5.65 M/UL (4.70-6.10); RED CELL DISTRIBUTION WIDTH 11.1 % (11.6-14.8); WHITE BLOOD COUNT 16.7 K/UL (4.8-10.8)
[2017-03-01 14:16] LABS: BACTERIA,URINE FEW /HPF; SQUAMOUS EPITHELIAL CELL,UR OCCASIONAL /LPF (NONE/OCC)
[2017-03-01 14:17] LABS: MUCUS,URINE FEW /LPF (NONE/OCC)
[2017-03-01 14:20] LABS: ALANINE AMINOTRANSFERASE 15 U/L (3-41); ALBUMIN/GLOBULIN RATIO 1.3 (1.0-2.7); ANION GAP 15 (5-15); ASPARTATE AMINO TRANSFERASE 18 U/L (5-40); CALCIUM 9.9 mg/dL (8.6-10.2); CARBON DIOXIDE 23 mEQ/L (20-30); CHLORIDE 103 mEQ/L (98-107); CREATININE 0.8 mg/dL (0.7-1.2); GLOMERULAR FILTRATION RATE > 60 mL/min (>60); HEMOLYSIS 5; LIPASE 22 U/L (< 60); POTASSIUM 4.1 mEQ/L (3.4-4.9); SODIUM 141 mEQ/L (135-145); TOTAL PROTEIN 8.1 g/dL (6.6-8.7)
[2017-03-01] MEDS ORDERED: D5 1/2NS 1,000 ML IV SCH (14:30)
[2017-03-01 14:42] VITALS: BP 135/88
[2017-03-01 14:46] LABS: BAND NEUTROPHILS % (MANUAL) 0 % (0-8); BASOPHILS % (MANUAL) 0 % (0-2); EOSINOPHILS % (MANUAL) 0 % (0-3); LYMPHOCYTES % (MANUAL) 10 % (20-45); NEUTROPHILS % (MANUAL) 86 % (45-75); PLATELET ESTIMATE ADEQUATE; PLATELET MORPHOLOGY NORMAL; TOTAL CELLS COUNTED 100
[2017-03-01] MEDS ORDERED: ZOFRAN4 MG ORAL (14:57)
[2017-03-01 15:22] VITALS: BP 117/68
== END 2017-03-01 15:24 | disposition home or self-care (01) ==
LOC: EMR 12:58
DX: G43.A0 Cyclical vomiting, in migraine, not intractable (principal); E86.0 Dehydration; Z88.0 Allergy status to penicillin; Z88.2 Allergy status to sulfonamides
CPT/HCPCS: 36415; 80053; 81003; 83690; 85007; 85025; 86850; 86900; 86901; 96361; 96372; 96374; 96376; 99284; J1630; J2405

== ENCOUNTER 2017-03-26 16:03 | Emergency (ER) | payer MEDICAID ==
[~2017-03-26] VITALS: Ht 175.3 cm; Wt 86.2 kg
[2017-03-26 16:18] VITALS: BP 139/80
[2017-03-26 17:54] LABS: MEAN CORPUSCULAR HEMOGLOBIN 30.8 PG (27.0-31.0); MEAN CORPUSCULAR HGB CONC 34.7 G/DL (32.0-36.0); MEAN CORPUSCULAR VOLUME 89 FL (80-99); MEAN PLATELET VOLUME 7.4 FL (6.5-10.1); PLATELET COUNT 296 K/UL (150-450); RED BLOOD COUNT 5.61 M/UL (4.70-6.10); RED CELL DISTRIBUTION WIDTH 11.1 % (11.6-14.8); WHITE BLOOD COUNT 17.3 K/UL (4.8-10.8)
[2017-03-26] MEDS ORDERED: Capsaicin 0.075% Cream TOPIC SCH (18:00)
[2017-03-26 18:10] VITALS: BP 135/86
[2017-03-26 18:32] LABS: ALANINE AMINOTRANSFERASE 19 U/L (12-78); ANION GAP 14 mmol/L (5-15); ASPARTATE AMINO TRANSFERASE 17 U/L (15-37); CALCIUM 9.8 MG/DL (8.5-10.1); CARBON DIOXIDE 22 MMOL/L (21-32); CHLORIDE 105 MMOL/L (98-107); CREATININE 1.1 MG/DL (0.55-1.30); GLOMERULAR FILTRATION RATE > 60 mL/min (>60); LIPASE 86 U/L (73-393); POTASSIUM 3.8 MMOL/L (3.5-5.1); SODIUM 141 MMOL/L (136-145); TOTAL PROTEIN 8.5 G/DL (6.4-8.2)
[2017-03-26 18:48] LABS: BILIRUBIN,DIRECT 0.2 MG/DL (0.0-0.3)
[2017-03-26 18:54] LABS: BAND NEUTROPHILS % (MANUAL) 6 % (0-8); BASOPHILS % (MANUAL) 0 % (0-2); EOSINOPHILS % (MANUAL) 0 % (0-3); LYMPHOCYTES % (MANUAL) 10 % (20-45); NEUTROPHILS % (MANUAL) 82 % (45-75); PLATELET ESTIMATE ADEQUATE; PLATELET MORPHOLOGY NORMAL; TOTAL CELLS COUNTED 100
--- NOTE | 2017-03-26 19:17 | Emergency Room Report ---
History of Present Illness General Chief Complaint: Vomiting Present Illness HPI 32 YO Male presents to the ED c/oN/V w. hx of cyclical vomiting and THC use. Denies abdominal pain at this time. Denies fevers, chills, recent travel or ill contacts. Patient denies blood in the vomit denies black tarry stools denies constipation or diarrhea. denies rashes, LEO, recent trauma or fall. Denies CP, Palpitations, LOC, AMS, dizziness, Changes in Vision, Sensation, paresthesias, or a sudden severe headache. Allergies: Coded Allergies: PENICILLINS (Verified Allergy, Unknown, 07/20/16) SULFAMETHOXAZOLE (Verified Allergy, Unknown, 07/20/16) TRIMETHOPRIM (Verified Allergy, Unknown, 07/20/16) Patient History Past Medical History: see triage record Past Surgical History: none Pertinent Family History: none Reviewed Nursing Documentation: PMH: Agreed, PSxH: Agreed Nursing Documentation-PMH Hx Cardiac Problems: No Hx Cancer: No Hx Gastrointestinal Problems: Yes Hx Neurological Problems: No Review of Systems All Other Systems: negative except mentioned in HPI Physical Exam Vital Signs Date Time Temp Pulse Resp B/P (MAP) Pulse Ox O2 Delivery O2 Flow Rate FiO2 03/26/17 16:08 97.7 86 20 139/80 96 Room Air Sp02 EP Interpretation: reviewed, normal General Appearance: alert, GCS 15, non-toxic, mild distress Head: normocephalic, atraumatic Eyes: bilateral eye normal inspection, bilateral eye PERRL ENT: hearing grossly normal, normal voice Neck: full range of motion, supple/symm/no masses Respiratory: chest non-tender, lungs clear, normal breath sounds, speaking full sentences Cardiovascular #1: regular rate, rhythm Gastrointestinal: normal bowel sounds, non tender, soft, no guarding, no rebound Rectal: deferred Musculoskeletal: back normal, gait/station normal, normal range of motion, non- tender Neurologic: alert, oriented x3, responsive, motor strength/tone normal, sensory intact, speech normal Skin: normal color, no rash, warm/dry, well hydrated Medical Decision Making PA Attestation Dr. Snowden is my supervising Physician whom patient management has been discussed with. Diagnostic Impression: Primary Impression: Cyclical vomiting syndrome Qualified Codes: G43.A1 - Cyclical vomiting, intractable ER Course Pt. presents to the ED c/oN/V w. hx of cyclical vomiting and THC use. Ddx considered but are not limited to GE, colitis, acute appy, SBO, Vital signs: pt. is afebrile, H&PE are most consistent with GE ORDERS: -CBC, CMP: WBc's 17.3 ( most likely stress reaction , review of previous labs shows pt. consistently has elevated WBC's , and has been higher in the past) this result was d/w supervising physician -Lipase: WNL -UA: WNL/unremarkable ED INTERVENTIONS: -1000 NS iv hydration, and 4mg IVP zofran for nausea. -[place] Cream -- pt. was able to tolerate oral fluids after above interventions. --Gave pt. strict ED return precautions. DISCHARGE: At this time pt. is stable for d/c to home. Will provide printed patient care instructions, and any necessary prescriptions. Care plan and follow up instructions have been discussed with the patient prior to discharge. Labs Test 03/26/17 17:13 03/26/17 19:09 White Blood Count 17.3 K/UL (4.8-10.8) Red Blood Count 5.61 M/UL (4.70-6.10) Hemoglobin 17.3 G/DL (14.2-18.0) Hematocrit 49.8 % (42.0-52.0) Mean Corpuscular Volume 89 FL (80-99) Mean Corpuscular Hemoglobin 30.8 PG (27.0-31.0) Mean Corpuscular Hemoglobin Concent 34.7 G/DL (32.0-36.0) Red Cell Distribution Width 11.1 % (11.6-14.8) Platelet Count 296 K/UL (150-450) Mean Platelet Volume 7.4 FL (6.5-10.1) Neutrophils (%) (Auto) % (45.0-75.0) Lymphocytes (%) (Auto) % (20.0-45.0) Monocytes (%) (Auto) % (1.0-10.0) Eosinophils (%) (Auto) % (0.0-3.0) Basophils (%) (Auto) % (0.0-2.0) Differential Total Cells Counted 100 Neutrophils % (Manual) 82 % (45-75) Lymphocytes % (Manual) 10 % (20-45) Monocytes % (Manual) 2 % (1-10) Eosinophils % (Manual) 0 % (0-3) Basophils % (Manual) 0 % (0-2) Band Neutrophils 6 % (0-8) Platelet Estimate Adequate Platelet Morphology Normal Red Blood Cell Morphology Normal Sodium Level 141 MMOL/L (136-145) Potassium Level 3.8 MMOL/L (3.5-5.1) Chloride Level 105 MMOL/L (98-107) Carbon Dioxide Level 22 MMOL/L (21-32) Anion Gap 14 mmol/L (5-15) Blood Urea Nitrogen 16 mg/dL (7-18) Creatinine 1.1 MG/DL (0.55-1.30) Estimat Glomerular Filtration Rate > 60 mL/min (>60) Glucose Level 127 MG/DL (74-106) Calcium Level 9.8 MG/DL (8.5-10.1) Total Bilirubin 1.2 MG/DL (0.2-1.0) Direct Bilirubin 0.2 MG/DL (0.0-0.3) Aspartate Amino Transf (AST/SGOT) 17 U/L (15-37) Alanine Aminotransferase (ALT/SGPT) 19 U/L (12-78) Alkaline Phosphatase 90 U/L (46-116) Total Protein 8.5 G/DL (6.4-8.2) Albumin 4.3 G/DL (3.4-5.0) Globulin 4.2 g/dL Albumin/Globulin Ratio 1.0 (1.0-2.7) Lipase 86 U/L (73-393) Urine Color Yellow Urine Appearance Clear Urine pH 8 (4.5-8.0) Urine Specific [place] 1.015 (1.005-1.035) Urine Protein 1+ (NEGATIVE) Urine Glucose (UA) Negative (NEGATIVE) Urine Ketones 3+ (NEGATIVE) Urine Occult Blood Negative (NEGATIVE) Urine Nitrite Negative (NEGATIVE) Urine Bilirubin Negative (NEGATIVE) Urine Urobilinogen Normal MG/DL (0.0-1.0) Urine Leukocyte Esterase 1+ (NEGATIVE) Urine RBC 0-2 /HPF (0 - 0) Urine WBC 2-4 /HPF (0 - 0) Urine Squamous Epithelial Cells None /LPF (NONE/OCC) Urine Bacteria Few /HPF (NONE) Last Vital Signs Date Time Temp Pulse Resp B/P (MAP) Pulse Ox O2 Delivery O2 Flow Rate FiO2 03/26/17 16:08 97.7 86 20 139/80 96 Room Air Disposition: HOME, SELF-CARE Condition: Stable Scripts Ranitidine Hcl* (ZANTAC*) 150 Mg Tablet 150 MG ORAL TWICE A DAY for 7 Days, #14 TAB Prov: Nisha Miramontes 03/26/17 Ondansetron Odt* (ZOFRAN ODT*) 4 Mg Tab.rapdis 4 MG ORAL Q6H Y for Nausea & Vomiting, #30 TAB Prov: Nisha Miramontes 03/26/17 Capsaicin (Zostrix) 56.6 Gm Cream..g. 1 APPLIC TP PRN Y for Nausea & Vomiting, #56.6 GM Prov: Nisha Miramontes 03/26/17 Referrals: [facility],REFERRING (PCP) Patient Instructions: Nausea and Vomiting, Adult Additional Instructions: Take medications as directed. Follow up with a Primary Care Provider in 3-5 days, even if your symptoms have resolved. --Please review list of primary care clinics, if you do not already have a primary care provider Return sooner to ED if new symptoms occur, or current symptoms become worse. - Please note that this Emergency Department Report was dictated using [employer] stencil maker technology software, occasionally this can lead to erroneous entry secondary to interpretation by the dictation equipment. Nisha Miramontes Mar 26, 2017 19:17
[2017-03-26] MEDS ORDERED: ZOSTRIX56.6 GM TP (19:19)
[2017-03-26] MEDS ORDERED: ZOFRAN ODT4 MG ORAL (19:19)
[2017-03-26] MEDS ORDERED: ZANTAC150 MG ORAL (19:19)
[2017-03-26 19:27] VITALS: BP 135/86
[2017-03-26 20:03] LABS: APPEARANCE,URINE CLEAR; KETONES,URINE 3+ (NEGATIVE); LEUKOCYTE ESTERASE ,URINE 1+ (NEGATIVE); NITRITE,URINE NEGATIVE (NEGATIVE); PH,URINE 8 (4.5-8.0); PROTEIN,URINE 1+ (NEGATIVE); UROBILINOGEN,URINE NORMAL MG/DL (0.0-1.0)
[2017-03-26 20:08] LABS: BACTERIA,URINE FEW /HPF; RBC,URINE 0-2 /HPF (0 - 0)
== END 2017-03-26 20:38 | disposition home or self-care (01) ==
LOC: EMR 16:47
DX: G43.A0 Cyclical vomiting, in migraine, not intractable (principal); Z88.0 Allergy status to penicillin; Z88.2 Allergy status to sulfonamides
CPT/HCPCS: 36415; 80053; 81003; 82248; 83690; 85007; 85025; 96361; 96374; 99284; J2405

== ENCOUNTER 2017-03-30 11:00 | Emergency (ER) | payer MEDICAID ==
[~2017-03-30] VITALS: Ht 170.2 cm; Wt 90.7 kg
[~2017-03-30 11:00] MED LIST changes: +ZOSTRIX56.6 GM TP
[2017-03-30 11:18] VITALS: BP 144/94
[2017-03-30] MEDS ORDERED: DiphenhydrAMINE 50mg/ml Inj IVP ONE (11:30)
[2017-03-30] MEDS ORDERED: Metoclopramide 10mg/2ml Inj IVP ONE (11:30)
[2017-03-30 11:44] LABS: MEAN CORPUSCULAR HEMOGLOBIN 29.4 PG (27.0-31.0); MEAN CORPUSCULAR HGB CONC 33.1 G/DL (32.0-36.0); MEAN CORPUSCULAR VOLUME 89 FL (80-99); MEAN PLATELET VOLUME 6.9 FL (6.5-10.1); PLATELET COUNT 300 K/UL (150-450); RED BLOOD COUNT 5.68 M/UL (4.70-6.10); RED CELL DISTRIBUTION WIDTH 10.9 % (11.6-14.8); WHITE BLOOD COUNT 18.4 K/UL (4.8-10.8)
[2017-03-30 11:56] LABS: APPEARANCE,URINE CLEAR; KETONES,URINE NEGATIVE (NEGATIVE); LEUKOCYTE ESTERASE ,URINE NEGATIVE (NEGATIVE); NITRITE,URINE NEGATIVE (NEGATIVE); PH,URINE 6.5 (4.5-8.0); PROTEIN,URINE NEGATIVE (NEGATIVE); UROBILINOGEN,URINE NORMAL MG/DL (0.0-1.0)
[2017-03-30 12:11] LABS: EOSINOPHILS % (MANUAL) 1 % (0-3); LYMPHOCYTES % (MANUAL) 15 % (20-45); NEUTROPHILS % (MANUAL) 77 % (45-75); TOTAL CELLS COUNTED 100
[2017-03-30 12:12] LABS: BAND NEUTROPHILS % (MANUAL) 0 % (0-8); BASOPHILS % (MANUAL) 0 % (0-2); PLATELET ESTIMATE ADEQUATE; PLATELET MORPHOLOGY NORMAL
[2017-03-30 12:33] LABS: ALANINE AMINOTRANSFERASE 14 U/L (12-78); ANION GAP 14 mmol/L (5-15); ASPARTATE AMINO TRANSFERASE 14 U/L (15-37); CALCIUM 9.3 MG/DL (8.5-10.1); CARBON DIOXIDE 23 MMOL/L (21-32); CHLORIDE 103 MMOL/L (98-107); CREATININE 1.1 MG/DL (0.55-1.30); GLOMERULAR FILTRATION RATE > 60 mL/min (>60); POTASSIUM 3.5 MMOL/L (3.5-5.1); SODIUM 139 MMOL/L (136-145); TOTAL PROTEIN 7.8 G/DL (6.4-8.2)
[2017-03-30] MEDS ORDERED: Morphine Sulfate 2mg/ml Inj ONE (13:09)
[2017-03-30] MEDS ORDERED: Morphine Sulfate 4mg/ml Inj IVP ONE ×2 (13:15→15:45)
[2017-03-30 13:21] VITALS: BP 159/86
[2017-03-30 15:29] VITALS: BP 117/79
--- NOTE | 2017-03-30 15:57 | Emergency Room Report ---
History of Present Illness General Chief Complaint: Vomiting Source: Patient Present Illness HPI Patient presents with persistent vomiting with nausea and headache. He felt ill first in his stomach and then in the back of his head. He's been seen here for cyclic vomiting syndrome multiple times. He was admitted to the hospital by me when his symptoms were controlled. He's been given a prescription for Bentyl in the past but is uncertain whether he started it, or whether it helped. In addition he took Reglan this morning and Zofran sublingually. He also takes Zantac but only when he has symptoms. The pain is severe and his head (01/16), more in the back of his neck and occiput -- less so in his stomach. He denies any blood or melena. These episodes start after he moves his bowels in the morning. He feels he has to evacuate all stool. There is gas. No post nasal drip. After moving his bowels, he starts to feel nausea and acid in his stomach and chest. Then the pain occurs in his neck and back of the head. The vomiting persists after associated with anxiety. Last time he was here he was given a prescription for Zostrix cream. This helped him transanally but he feels as not effective. He denies alcohol. He does smoke THC. His is and he is stressed about this. He noted some rashes on his lower legs, but denies itching or pain. No calf tenderness, swelling, hemoptysis or wheezing. He is worried something deadly is involved. He was seen Friday night at another hospital and received "a pill" and IV fluids. He was able to eat, but then felt the nausea and neck/head symptoms. He was told something about problems with the nerves in his lower back. Each time here he has had leukocytosis. Lipase normal 03/26. When admitted 02/07 abdominal films were normal. He had elevated H/H before, felt related to dehydration. He is awaiting referral to GI specialist. Allergies: Coded Allergies: PENICILLINS (Verified Allergy, Unknown, 07/20/16) SULFAMETHOXAZOLE (Verified Allergy, Unknown, 07/20/16) TRIMETHOPRIM (Verified Allergy, Unknown, 07/20/16) Patient History Past Medical History: see triage record, old chart reviewed Social History: Reports: drug use - THC, Denies: smoking, alcohol use Social History Narrative Reviewed Nursing Documentation: PMH: Agreed, PSxH: Agreed Nursing Documentation-PMH Hx Cardiac Problems: No Hx Cancer: No Hx Gastrointestinal Problems: Yes - Vomitting Hx Neurological Problems: No Review of Systems All Other Systems: negative except mentioned in HPI Physical Exam Vital Signs Date Time Temp Pulse Resp B/P (MAP) Pulse Ox O2 Delivery O2 Flow Rate FiO2 03/30/17 11:08 98.1 75 22 164/103 100 Room Air Sp02 EP Interpretation: reviewed, normal General Appearance: well appearing, GCS 15, mild distress Head: normocephalic Eyes: bilateral eye PERRL, bilateral eye Scleral Injection ENT: moist mucus membranes Neck: supple Respiratory: lungs clear, normal breath sounds Cardiovascular #1: regular rate, rhythm Cardiovascular #2: 2+ radial (R) Gastrointestinal: normal inspection, normal bowel sounds, no mass, non- distended, no guarding, no rebound, tenderness - minimal epigastric Musculoskeletal: back normal, gait/station normal, normal range of motion, no calf tenderness, Mai's Sign negative Neurologic: alert, oriented x3, grossly normal Psychiatric: anxious Skin: warm/dry, other - venous disease lower R inner leg Medical Decision Making Diagnostic Impression: Primary Impression: Abdominal pain Qualified Codes: R10.13 - Epigastric pain Additional Impressions: Persistent vomiting Neck and occiptal pain Stress/anxiety Leukocytosis Qualified Codes: D72.828 - Other elevated white blood cell count ER Course Patient with cyclic vomiting syndrome with nausea and headache. DDx: abdominal migraine, cyclic vomiting, gastritis, PUD, GERD, referred esophageal pain, stress/anxiety, electrolyte abnormalities. Evaluation with labs. Exam against surgical problem in abdomen and imaging not indicated. Improved with initial treatment. Still asking for analgesia, mainly for back of neck and head discomfort. (Was able to drop off to sleep.) Initially stated started to get hungry but then started having nausea and headache again. This time is treated with Phenergan and morphine. Discussed possibly of abdominal migraine versus gastritis and esophagitis with radiation to his neck. Latter is more likely. He's not been taking Zantac daily living takes it when he has symptoms. Obvious contribution of stress and anxiety. He was advised to take Zantac daily. In addition to that we will increase his medications for his nausea. A consideration was to add hold off on that he did tell he's taking Zantac on a regular basis. In addition it was stressed how important it is to follow up with the GI specialist get endoscopy and biopsy for H. pylori. No medical or surgical emergency at this time. Patient stable for outpatient observation and treatment. Laboratory Tests Test 03/30/17 11:20 03/30/17 11:33 White Blood Count 18.4 K/UL (4.8-10.8) H Red Blood Count 5.68 M/UL (4.70-6.10) Hemoglobin 16.7 G/DL (14.2-18.0) Hematocrit 50.5 % (42.0-52.0) Mean Corpuscular Volume 89 FL (80-99) Mean Corpuscular Hemoglobin 29.4 PG (27.0-31.0) Mean Corpuscular Hemoglobin Concent 33.1 G/DL (32.0-36.0) Red Cell Distribution Width 10.9 % (11.6-14.8) L Platelet Count 300 K/UL (150-450) Mean Platelet Volume 6.9 FL (6.5-10.1) Neutrophils (%) (Auto) % (45.0-75.0) Lymphocytes (%) (Auto) % (20.0-45.0) Monocytes (%) (Auto) % (1.0-10.0) Eosinophils (%) (Auto) % (0.0-3.0) Basophils (%) (Auto) % (0.0-2.0) Differential Total Cells Counted 100 Neutrophils % (Manual) 77 % (45-75) H Lymphocytes % (Manual) 15 % (20-45) L Monocytes % (Manual) 7 % (1-10) Eosinophils % (Manual) 1 % (0-3) Basophils % (Manual) 0 % (0-2) Band Neutrophils 0 % (0-8) Platelet Estimate Adequate Platelet Morphology Normal Sodium Level 139 MMOL/L (136-145) Potassium Level 3.5 MMOL/L (3.5-5.1) Chloride Level 103 MMOL/L (98-107) Carbon Dioxide Level 23 MMOL/L (21-32) Anion Gap 14 mmol/L (5-15) Blood Urea Nitrogen 10 mg/dL (7-18) Creatinine 1.1 MG/DL (0.55-1.30) Estimate Glomerular Filtration Rate > 60 mL/min (>60) Glucose Level 110 MG/DL (74-106) H Calcium Level 9.3 MG/DL (8.5-10.1) Total Bilirubin 0.7 MG/DL (0.2-1.0) Aspartate Amino Transferase (AST) 14 U/L (15-37) L Alanine Aminotransferase (ALT) 14 U/L (12-78) Alkaline Phosphatase 83 U/L (46-116) Total Creatine Kinase 174 U/L (26-308) Total Protein 7.8 G/DL (6.4-8.2) Albumin 3.9 G/DL (3.4-5.0) Globulin 3.9 g/dL Albumin/Globulin Ratio 1.0 (1.0-2.7) Urine Color Pale yellow Urine Appearance Clear Urine pH 6.5 (4.5-8.0) Urine Specific [place] 1.015 (1.005-1.035) Urine Protein Negative (NEGATIVE) Urine Glucose (UA) Negative (NEGATIVE) Urine Ketones Negative (NEGATIVE) Urine Occult Blood Negative (NEGATIVE) Urine Nitrite Negative (NEGATIVE) Urine Bilirubin Negative (NEGATIVE) Urine Urobilinogen Normal MG/DL (0.0-1.0) Urine Leukocyte Esterase Negative (NEGATIVE) Urine Opiates Screen Negative (NEGATIVE) Urine Barbiturates Screen Negative (NEGATIVE) Phencyclidine (PCP) Screen Negative (NEGATIVE) Urine Amphetamines Screen Negative (NEGATIVE) Urine Benzodiazepines Screen Negative (NEGATIVE) Urine Cocaine Screen Negative (NEGATIVE) Urine Marijuana (THC) Screen Positive (NEGATIVE) H EKG Diagnostic Results Rate: normal Rhythm: NSR ST Segments: no acute changes Rhythm Strip Diag. Results EP Interpretation: yes Rhythm: NSR, no PVC's, no ectopy Last Vital Signs Date Time Temp Pulse Resp B/P (MAP) Pulse Ox O2 Delivery O2 Flow Rate FiO2 03/30/17 17:20 97.4 80 16 139/90 98 Room Air Status: improved Disposition: HOME, SELF-CARE Condition: Improved Scripts Ranitidine Hcl* (ZANTAC*) 150 Mg Tablet 150 MG ORAL TWICE A DAY, #60 TAB 1 Refill Prov: Nahun Bauer M.D. 03/30/17 Promethazine Hcl (PROMETHAZINE HCL) 25 Mg Supp.rect 25 MG RC Q8HR, #6 SUPP 1 Refill Prov: Nahun Bauer M.D. 03/30/17 Promethazine Hcl* (PHENERGAN*) 25 Mg Tablet 25 MG ORAL Q8HR Y for nausea or vomiting, #10 TAB 1 Refill Prov: Nahun Bauer M.D. 03/30/17 Referrals: [facility]OSEN [facility]/,REFERRING (PCP) Nahun Bauer M.D. Mar 30, 2017 15:57
[2017-03-30] MEDS ORDERED: PROMETHAZINE HC25 MG RC (17:09)
[2017-03-30] MEDS ORDERED: PROMETHAZINE HC25 M1 ORAL (17:09)
[2017-03-30] MEDS ORDERED: RANITIDINE HCL150 MG ORAL (17:16)
[2017-03-30 17:20] VITALS: BP 139/90
--- NOTE | 2017-04-01 08:47 | Cardiology Report ---
APPROVED REPORT EKG Measurement Heart [id number] Normal sinus rhythm T wave abnormality, consider inferior ischemia Abnormal ECG
== END 2017-03-30 17:20 | disposition home or self-care (01) ==
LOC: EMR 11:34
DX: R10.9 Unspecified abdominal pain (principal); G43.A0 Cyclical vomiting, in migraine, not intractable; M54.2 Cervicalgia; F41.9 Anxiety disorder, unspecified; F43.0 Acute stress reaction; D72.829 Elevated white blood cell count, unspecified; Z88.0 Allergy status to penicillin; Z88.2 Allergy status to sulfonamides
CPT/HCPCS: 36415; 80053; 80307; 81003; 82550; 85007; 85025; 93005; 96361; 96372; 96374; 96375; 96376; 99284; J1200; J2270; J2405; J2550; J2765; S0028

== ENCOUNTER 2017-04-01 20:20 | Emergency (ER) | payer MEDICAID ==
[~2017-04-01] VITALS: Ht 170.2 cm; Wt 95.3 kg
[~2017-04-01 20:20] MED LIST changes: +PROMETHAZINE HC25 M1 ORAL; +PROMETHAZINE HC25 MG RC
[2017-04-01] MEDS ORDERED: Haloperidol 5mg/ml Inj IM ONE (21:30)
--- NOTE | 2017-04-01 21:32 | Emergency Room Report ---
History of Present Illness General Chief Complaint: Nausea Source: Patient Present Illness HPI Is a 32-year-old male presented after increased abdominal pain and vomiting. Patient reported having increased nausea. Patient prior history of cyclic vomiting syndrome. Patient reports last marijuana use approximately 2 days ago. Patient states that he been having generalized weakness. The patient recently been seen at [facility] similar type symptoms. Patient states that he had not been having any hematemesis or rectal bleeding. He denies dizziness with upright position. He reports making urine. Allergies: Coded Allergies: PENICILLINS (Verified Allergy, Unknown, 07/20/16) SULFAMETHOXAZOLE (Verified Allergy, Unknown, 07/20/16) TRIMETHOPRIM (Verified Allergy, Unknown, 07/20/16) Nursing Documentation-[facility] Past Medical History: No History, Except For Hx Cardiac Problems: No Hx Cancer: No Hx Gastrointestinal Problems: Yes - Vomitting Hx Neurological Problems: No Physical Exam Vital Signs Date Time Temp Pulse Resp B/P (MAP) Pulse Ox O2 Delivery O2 Flow Rate FiO2 04/01/17 20:47 98.8 86 16 158/94 98 Room Air Sp02 EP Interpretation: reviewed, normal General Appearance: normal inspection, well appearing, no apparent distress, alert Head: atraumatic ENT: normal ENT inspection, hearing grossly normal, normal voice Neck: normal inspection, full range of motion, supple, no bony tend Respiratory: normal inspection, lungs clear, normal breath sounds, no respiratory distress, no retraction, no wheezing Cardiovascular #1: regular rate, rhythm, no edema Gastrointestinal: normal inspection, normal bowel sounds, non tender, soft, no guarding, no hernia Genitourinary: no CVA tenderness Musculoskeletal: normal inspection, back normal, normal range of motion Neurologic: normal inspection, alert, oriented x3, responsive, area attendant III-XII nml as tested, speech normal Psychiatric: normal inspection, judgement/insight normal, mood/affect normal Skin: normal inspection, normal color, no rash Medical Decision Making Diagnostic Impression: Primary Impression: Cyclical vomiting syndrome ER Course Patient 32-year-old male who presented after increased nausea and vomiting. . Differential diagnoses included ischemic bowel, appendicitis, perforated viscus , abdominal aortic aneurysm, inferior myocardial infarction, viral gastroenteritis. Because of complexity of patient's case laboratory testing and imaging studies were ordered. Patient noted have prior history of cyclic vomiting related to marijuana use.The patient continued have a nontender abdomen on reassessment. The patient was given intramuscular Haldol as well as IV fluids. Patient said he felt better want to go home. Patient's white blood count appears to be related to stress demargination. Patient was able to tolerate fluids. Patient given prescription for Zyprexa for vomiting control Labs Test 04/01/17 21:25 White Blood Count 21.2 K/UL (4.8-10.8) Red Blood Count 5.68 M/UL (4.70-6.10) Hemoglobin 16.1 G/DL (14.2-18.0) Hematocrit 51.9 % (42.0-52.0) Mean Corpuscular Volume 91 FL (80-99) Mean Corpuscular Hemoglobin 28.3 PG (27.0-31.0) Mean Corpuscular Hemoglobin Concent 30.9 G/DL (32.0-36.0) Red Cell Distribution Width 11.4 % (11.6-14.8) Platelet Count 288 K/UL (150-450) Mean Platelet Volume 6.9 FL (6.5-10.1) Neutrophils (%) (Auto) % (45.0-75.0) Lymphocytes (%) (Auto) % (20.0-45.0) Monocytes (%) (Auto) % (1.0-10.0) Eosinophils (%) (Auto) % (0.0-3.0) Basophils (%) (Auto) % (0.0-2.0) Differential Total Cells Counted 100 Neutrophils % (Manual) 82 % (45-75) Lymphocytes % (Manual) 11 % (20-45) Monocytes % (Manual) 4 % (1-10) Eosinophils % (Manual) 1 % (0-3) Basophils % (Manual) 0 % (0-2) Band Neutrophils 2 % (0-8) Platelet Estimate Adequate Platelet Morphology Normal Red Blood Cell Morphology Normal Polychromasia Urine Color Yellow Urine Appearance Clear Urine pH 8 (4.5-8.0) Urine Specific [place] 1.015 (1.005-1.035) Urine Protein Negative (NEGATIVE) Urine Glucose (UA) Negative (NEGATIVE) Urine Ketones 3+ (NEGATIVE) Urine Occult Blood Negative (NEGATIVE) Urine Nitrite Negative (NEGATIVE) Urine Bilirubin Negative (NEGATIVE) Urine Urobilinogen Normal MG/DL (0.0-1.0) Urine Leukocyte Esterase Negative (NEGATIVE) Sodium Level 144 MMOL/L (136-145) Potassium Level 3.6 MMOL/L (3.5-5.1) Chloride Level 105 MMOL/L (98-107) Carbon Dioxide Level 28 MMOL/L (21-32) Anion Gap 11 mmol/L (5-15) Blood Urea Nitrogen 8 mg/dL (7-18) Creatinine 1.0 MG/DL (0.55-1.30) Estimat Glomerular Filtration Rate > 60 mL/min (>60) Glucose Level 96 MG/DL (74-106) Calcium Level 9.8 MG/DL (8.5-10.1) Total Bilirubin 1.2 MG/DL (0.2-1.0) Direct Bilirubin 0.2 MG/DL (0.0-0.3) Aspartate Amino Transf (AST/SGOT) 21 U/L (15-37) Alanine Aminotransferase (ALT/SGPT) 21 U/L (12-78) Alkaline Phosphatase 91 U/L (46-116) Total Protein 8.6 G/DL (6.4-8.2) Albumin 4.3 G/DL (3.4-5.0) Globulin 4.3 g/dL Albumin/Globulin Ratio 1.0 (1.0-2.7) Lipase 90 U/L (73-393) Last Vital Signs Date Time Temp Pulse Resp B/P (MAP) Pulse Ox O2 Delivery O2 Flow Rate FiO2 04/01/17 20:47 98.8 86 16 158/94 98 Room Air Status: improved Disposition: HOME, SELF-CARE Condition: Stable Scripts Olanzapine* (ZYPREXA*) 5 Mg Tablet 5 MG ORAL DAILY, #20 TAB Prov: Nathaniel Hernandez 04/01/17 Nathaniel Hernandez Apr 01, 2017 21:32
[2017-04-01 21:46] VITALS: BP 158/94
[2017-04-01 22:06] LABS: MEAN CORPUSCULAR HEMOGLOBIN 28.3 PG (27.0-31.0); MEAN CORPUSCULAR HGB CONC 30.9 G/DL (32.0-36.0); MEAN CORPUSCULAR VOLUME 91 FL (80-99); MEAN PLATELET VOLUME 6.9 FL (6.5-10.1); PLATELET COUNT 288 K/UL (150-450); RED BLOOD COUNT 5.68 M/UL (4.70-6.10); RED CELL DISTRIBUTION WIDTH 11.4 % (11.6-14.8); WHITE BLOOD COUNT 21.2 K/UL (4.8-10.8)
[2017-04-01 22:08] LABS: APPEARANCE,URINE CLEAR; KETONES,URINE 3+ (NEGATIVE); LEUKOCYTE ESTERASE ,URINE NEGATIVE (NEGATIVE); NITRITE,URINE NEGATIVE (NEGATIVE); PH,URINE 8 (4.5-8.0); PROTEIN,URINE NEGATIVE (NEGATIVE); UROBILINOGEN,URINE NORMAL MG/DL (0.0-1.0)
[2017-04-01 22:41] LABS: ALANINE AMINOTRANSFERASE 21 U/L (12-78); ANION GAP 11 mmol/L (5-15); ASPARTATE AMINO TRANSFERASE 21 U/L (15-37); CALCIUM 9.8 MG/DL (8.5-10.1); CARBON DIOXIDE 28 MMOL/L (21-32); CHLORIDE 105 MMOL/L (98-107); GLOMERULAR FILTRATION RATE > 60 mL/min (>60); LIPASE 90 U/L (73-393); POTASSIUM 3.6 MMOL/L (3.5-5.1); SODIUM 144 MMOL/L (136-145); TOTAL PROTEIN 8.6 G/DL (6.4-8.2)
[2017-04-01 22:50] LABS: BAND NEUTROPHILS % (MANUAL) 2 % (0-8); EOSINOPHILS % (MANUAL) 1 % (0-3); LYMPHOCYTES % (MANUAL) 11 % (20-45); NEUTROPHILS % (MANUAL) 82 % (45-75); TOTAL CELLS COUNTED 100
[2017-04-01 22:51] LABS: BASOPHILS % (MANUAL) 0 % (0-2); PLATELET ESTIMATE ADEQUATE; PLATELET MORPHOLOGY NORMAL
[2017-04-01 22:55] LABS: BILIRUBIN,DIRECT 0.2 MG/DL (0.0-0.3)
[2017-04-01] MEDS ORDERED: ZYPREXA5 MG ORAL (23:02)
[2017-04-01 23:18] VITALS: BP 148/72
== END 2017-04-01 23:18 | disposition home or self-care (01) ==
LOC: EMR 21:15
DX: G43.A0 Cyclical vomiting, in migraine, not intractable (principal); Z88.0 Allergy status to penicillin; Z88.2 Allergy status to sulfonamides
CPT/HCPCS: 36415; 80053; 81003; 82248; 83690; 85007; 85025; 96360; 96372; 99284; J1630

== ENCOUNTER 2017-04-25 09:25 | Emergency (ER) | payer MEDICAID ==
[~2017-04-25] VITALS: Ht 170.2 cm; Wt 90.7 kg
[~2017-04-25 09:25] MED LIST changes: +ZYPREXA5 MG ORAL
[2017-04-25 09:40] VITALS: BP 169/123
[2017-04-25] MEDS ORDERED: Capsaicin 0.075% Cream TOPIC ONE (10:00)
[2017-04-25 10:32] LABS: MEAN CORPUSCULAR HEMOGLOBIN 29.7 PG (27.0-31.0); MEAN CORPUSCULAR HGB CONC 32.6 G/DL (32.0-36.0); MEAN CORPUSCULAR VOLUME 91 FL (80-99); MEAN PLATELET VOLUME 7.3 FL (6.5-10.1); PLATELET COUNT 345 K/UL (150-450); RED BLOOD COUNT 5.97 M/UL (4.70-6.10); RED CELL DISTRIBUTION WIDTH 11.9 % (11.6-14.8); WHITE BLOOD COUNT 21.2 K/UL (4.8-10.8)
[2017-04-25 11:03] LABS: ALANINE AMINOTRANSFERASE 27 U/L (12-78); ANION GAP 10 mmol/L (5-15); ASPARTATE AMINO TRANSFERASE 18 U/L (15-37); CALCIUM 9.7 MG/DL (8.5-10.1); CARBON DIOXIDE 28 MMOL/L (21-32); CHLORIDE 102 MMOL/L (98-107); GLOMERULAR FILTRATION RATE > 60 mL/min (>60); LIPASE 108 U/L (73-393); POTASSIUM 4.2 MMOL/L (3.5-5.1); SODIUM 140 MMOL/L (136-145); TOTAL PROTEIN 8.8 G/DL (6.4-8.2)
[2017-04-25 11:12] LABS: BAND NEUTROPHILS % (MANUAL) 0 % (0-8); BASOPHILS % (MANUAL) 0 % (0-2); EOSINOPHILS % (MANUAL) 0 % (0-3); LYMPHOCYTES % (MANUAL) 12 % (20-45); NEUTROPHILS % (MANUAL) 86 % (45-75); PLATELET ESTIMATE ADEQUATE; PLATELET MORPHOLOGY NORMAL; TOTAL CELLS COUNTED 100
[2017-04-25] MEDS ORDERED: Ketorolac 30mg Inj IV ONE (11:15)
[2017-04-25] MEDS ORDERED: Haloperidol 5mg/ml Inj IM ONE (12:45)
[2017-04-25] MEDS ORDERED: REGLAN5 MG ORAL (13:57)
--- NOTE | 2017-04-25 13:57 | Emergency Room Report ---
History of Present Illness General Chief Complaint: Nausea, Vomiting, and Diarrhea Source: Patient Present Illness HPI 32-year-old male, chronic marijuana use, history of cyclic vomiting syndrome, presenting with epigastric pain nausea and vomiting. About 5-6 episodes of nonbilious nonbloody vomiting. Associated with burning epigastric pain. No fever no chills. Patient states he still uses marijuana. Patient has been to the emergency room multiple times for same issue Allergies: Coded Allergies: PENICILLINS (Verified Allergy, Unknown, 07/20/16) SULFAMETHOXAZOLE (Verified Allergy, Unknown, 07/20/16) TRIMETHOPRIM (Verified Allergy, Unknown, 07/20/16) Patient History Past Medical History: see triage record Past Surgical History: none Pertinent Family History: none Reviewed Nursing Documentation: PMH: Agreed, PSxH: Agreed Nursing Documentation-PM Past Medical History: No Stated History Hx Cardiac Problems: No Hx Cancer: No Hx Gastrointestinal Problems: Yes - Vomitting Hx Neurological Problems: No Review of Systems All Other Systems: negative except mentioned in HPI Physical Exam Vital Signs Date Time Temp Pulse Resp B/P (MAP) Pulse Ox O2 Delivery O2 Flow Rate FiO2 04/25/17 09:30 97.9 76 18 148/94 98 Room Air Sp02 EP Interpretation: reviewed, normal General Appearance: alert, GCS 15, non-toxic, mild distress Head: normocephalic, atraumatic Eyes: bilateral eye normal inspection, bilateral eye PERRL, bilateral eye EOMI ENT: normal ENT inspection, normal pharynx, normal voice, moist mucus membranes Neck: normal inspection, full range of motion, supple Respiratory: normal inspection, lungs clear, normal breath sounds, no respiratory distress, no retraction, no wheezing, speaking full sentences, chest symmetrical Cardiovascular #1: normal inspection, regular rate, rhythm, no edema, normal capillary refill Cardiovascular #2: 2+ radial (R), 2+ radial (L) Gastrointestinal: normal inspection, non tender, soft, non-distended, no guarding Genitourinary: no CVA tenderness Musculoskeletal: normal inspection, back normal, normal range of motion, non- tender Neurologic: normal inspection, alert, oriented x3, responsive, motor strength/ tone normal, sensory intact, normal gait, speech normal Psychiatric: normal inspection, judgement/insight normal, memory normal Skin: normal inspection, normal color, no rash, warm/dry, well hydrated, normal turgor Medical Decision Making Diagnostic Impression: Primary Impression: Cyclical vomiting syndrome ER Course 32-year-old male history of cyclic vomiting syndrome presenting with nausea and vomiting Differential Diagnosis: Gastritis, gastroenteritis, cholecystitis, appendicitis, diverticulitis, SBO, mesenteric ischemia, cardiac, UTI/pyelo Plan: Basic labs, ua, ekg pain control, IVF Zofran, Haldol ER course: Patient has been monitored during ED stay, HD stable Patient given Zofran x2 as well as Haldol, repeated abdominal exams nontender, Disposition: Patient is to be discharged to home. Instructed to followup with gastroenterology. Instructed to refrain from all marijuana use. Instructed to come back to the emergency room if he is having worsening abdominal pain, intractable nausea or vomiting Please note that this Emergency Department Report was dictated using [employer] and radio aircraft mechanic technology software, occasionally this can lead to erroneous entry secondary to interpretation by the dictation equipment. Rhythm Strip EP Interpretation: Yes Rate: 70 Rhythm: NSR, no PVCs, no ectopy Laboratory Tests Test 04/25/17 10:05 White Blood Count 21.2 K/UL (4.8-10.8) H Red Blood Count 5.97 M/UL (4.70-6.10) Hemoglobin 17.7 G/DL (14.2-18.0) Hematocrit 54.4 % (42.0-52.0) H Mean Corpuscular Volume 91 FL (80-99) Mean Corpuscular Hemoglobin 29.7 PG (27.0-31.0) Mean Corpuscular Hemoglobin Concent 32.6 G/DL (32.0-36.0) Red Cell Distribution Width 11.9 % (11.6-14.8) Platelet Count 345 K/UL (150-450) Mean Platelet Volume 7.3 FL (6.5-10.1) Neutrophils (%) (Auto) % (45.0-75.0) Lymphocytes (%) (Auto) % (20.0-45.0) Monocytes (%) (Auto) % (1.0-10.0) Eosinophils (%) (Auto) % (0.0-3.0) Basophils (%) (Auto) % (0.0-2.0) Differential Total Cells Counted 100 Neutrophils % (Manual) 86 % (45-75) H Lymphocytes % (Manual) 12 % (20-45) L Monocytes % (Manual) 2 % (1-10) Eosinophils % (Manual) 0 % (0-3) Basophils % (Manual) 0 % (0-2) Band Neutrophils 0 % (0-8) Platelet Estimate Adequate Platelet Morphology Normal Red Blood Cell Morphology Normal Sodium Level 140 MMOL/L (136-145) Potassium Level 4.2 MMOL/L (3.5-5.1) Chloride Level 102 MMOL/L (98-107) Carbon Dioxide Level 28 MMOL/L (21-32) Anion Gap 10 mmol/L (5-15) Blood Urea Nitrogen 10 mg/dL (7-18) Creatinine 1.0 MG/DL (0.55-1.30) Estimate Glomerular Filtration Rate > 60 mL/min (>60) Glucose Level 128 MG/DL (74-106) H Calcium Level 9.7 MG/DL (8.5-10.1) Total Bilirubin 0.7 MG/DL (0.2-1.0) Aspartate Amino Transferase (AST) 18 U/L (15-37) Alanine Aminotransferase (ALT) 27 U/L (12-78) Alkaline Phosphatase 109 U/L (46-116) Total Protein 8.8 G/DL (6.4-8.2) H Albumin 4.4 G/DL (3.4-5.0) Globulin 4.4 g/dL Albumin/Globulin Ratio 1.0 (1.0-2.7) Lipase 108 U/L (73-393) Last Vital Signs Date Time Temp Pulse Resp B/P (MAP) Pulse Ox O2 Delivery O2 Flow Rate FiO2 04/25/17 09:40 97.9 66 16 169/123 100 Room Air Disposition: HOME, SELF-CARE Condition: Improved Scripts Metoclopramide Hcl* (REGLAN*) 5 Mg Tablet 5 MG ORAL EVERY 6 HOURS for 7 Days, #7 TAB 0 Refills Prov: Hardy Christine M.D. 04/25/17 Referrals: [facility],REFERR[facility] (PCP) Patient Instructions: Nausea and Vomiting, Adult, [id number] Additional Instructions: Please followup with your doctor in 5 days Please followup with a installations inspector within one week Please refrain from all marijuana use Hardy Christine M.D. Apr 25, 2017 13:57
[2017-04-25 13:59] VITALS: BP 120/80
== END 2017-04-25 13:59 | disposition home or self-care (01) ==
LOC: EMR 09:45
DX: G43.A0 Cyclical vomiting, in migraine, not intractable (principal); Z88.0 Allergy status to penicillin; Z88.2 Allergy status to sulfonamides
CPT/HCPCS: 36415; 80053; 83690; 85007; 85025; 96372; 96374; 96375; 99284; J1630; J1885; J2405

== ENCOUNTER 2017-05-16 12:36 | Emergency (ER) | payer MEDICAID ==
[~2017-05-16] VITALS: Ht 170.2 cm; Wt 90.7 kg
[~2017-05-16 12:36] MED LIST changes: +REGLAN5 MG ORAL
[2017-05-16 13:51] LABS: BASOPHILS % (AUTO) 0.9 % (0.0-2.0); EOSINOPHILS % (AUTO) 1.4 % (0.0-3.0); LYMPHOCYTES % (AUTO) 29.3 % (20.0-45.0); MEAN CORPUSCULAR HGB CONC 32.3 G/DL (32.0-36.0); MEAN CORPUSCULAR VOLUME 90 FL (80-99); MEAN PLATELET VOLUME 7.3 FL (6.5-10.1); MONOCYTES % (AUTO) 6.1 % (1.0-10.0); NEUTROPHILS % (AUTO) 62.4 % (45.0-75.0); PLATELET COUNT 320 K/UL (150-450); RED BLOOD COUNT 5.44 M/UL (4.70-6.10); RED CELL DISTRIBUTION WIDTH 11.2 % (11.6-14.8); WHITE BLOOD COUNT 14.4 K/UL (4.8-10.8)
[2017-05-16 13:59] LABS: PROTHROMBIN TIME 10.2 SEC (9.30-11.50)
[2017-05-16 14:01] LABS: ANION GAP 4 mmol/L (5-15); CALCIUM 9.2 MG/DL (8.5-10.1); CARBON DIOXIDE 32 MMOL/L (21-32); CHLORIDE 102 MMOL/L (98-107); GLOMERULAR FILTRATION RATE > 60 mL/min (>60); POTASSIUM 3.9 MMOL/L (3.5-5.1); SODIUM 138 MMOL/L (136-145)
[2017-05-16 14:05] LABS: ALANINE AMINOTRANSFERASE 22 U/L (12-78); ASPARTATE AMINO TRANSFERASE 13 U/L (15-37); TOTAL PROTEIN 7.5 G/DL (6.4-8.2)
[2017-05-16 14:14] VITALS: BP 106/66
--- NOTE | 2017-05-16 15:21 | Emergency Room Report ---
History of Present Illness General Chief Complaint: Lower Extremity Injury Source: Patient Present Illness HPI The patient is a 32-year-old male presenting for right leg swelling and pain. He states that this has been ongoing for several months but has been worsening. Pain is 8/10 dull ache primarily to the back of the right leg and the ankle. He states that he stands all day for his job. Pain is worse as the day goes on. He has not tried any medications for this. He has not used any compression stockings or try to elevate the leg. He denies history of smoking or injury to the leg. He denies any blood disorder He denies any other symptoms including chest pain, shortness of breath, rash, fever, chills Allergies: Coded Allergies: PENICILLINS (Verified Allergy, Unknown, 07/20/16) SULFAMETHOXAZOLE (Verified Allergy, Unknown, 07/20/16) TRIMETHOPRIM (Verified Allergy, Unknown, 07/20/16) Patient History Past Medical History: see triage record Pertinent Family History: none Reviewed Nursing Documentation: PMH: Agreed, PSxH: Agreed Nursing Documentation-PMH Hx Cardiac Problems: No Hx Cancer: No Hx Gastrointestinal Problems: Yes - Vomitting Hx Neurological Problems: No Review of Systems All Other Systems: negative except mentioned in HPI Physical Exam Vital Signs Date Time Temp Pulse Resp B/P (MAP) Pulse Ox O2 Delivery O2 Flow Rate FiO2 05/16/17 12:53 97.5 80 20 106/66 97 Room Air Sp02 EP Interpretation: reviewed, normal General Appearance: no apparent distress, alert, GCS 15, non-toxic Head: normocephalic, atraumatic Eyes: bilateral eye normal inspection, bilateral eye PERRL ENT: hearing grossly normal, normal pharynx, no angioedema, normal voice Neck: full range of motion, supple/symm/no masses Respiratory: chest non-tender, lungs clear, normal breath sounds, speaking full sentences Cardiovascular #1: regular rate, rhythm, no edema Gastrointestinal: normal bowel sounds, non tender, soft, non-distended, no guarding, no rebound Musculoskeletal: back normal, gait/station normal, normal range of motion, no calf tenderness, swelling - R lower leg with varicose veins Neurologic: alert, oriented x3, responsive, motor strength/tone normal, sensory intact, speech normal Psychiatric: judgement/insight normal, memory normal, mood/affect normal, no suicidal/homicidal ideation Skin: normal color, no rash, warm/dry, well hydrated Medical Decision Making PA Attestation Dr. Morales is my supervising physician. Patient management was discussed with my supervising physician Diagnostic Impression: Primary Impression: Right leg swelling ER Course The patient is a 32-year-old male presenting for right leg swelling and pain. Ddx considered include but not limited to DVT, Superficial thrombosis, lymphedema, eczema, cellulitis PE: afebrile. NAD Right lower leg: There varicosities with swelling to the distal end of the leg as well as the ankle. 1+ edema. No erythema. No tenderness to the calf. Lungs are clear to auscultation bilaterally DP pulse 2+ CBC: The patient has leukocytosis. This is a normal finding for his labs when compared to his history. Otherwise unremarkable The patient states that he wants to leave and does not want to wait for the DVT study. I informed him of the risks associated with this. He still wants to leave. He will leave AMA ER precautions are given Laboratory Tests Test 05/16/17 13:40 White Blood Count 14.4 K/UL (4.8-10.8) H Red Blood Count 5.44 M/UL (4.70-6.10) Hemoglobin 15.8 G/DL (14.2-18.0) Hematocrit 48.8 % (42.0-52.0) Mean Corpuscular Volume 90 FL (80-99) Mean Corpuscular Hemoglobin 29.0 PG (27.0-31.0) Mean Corpuscular Hemoglobin Concent 32.3 G/DL (32.0-36.0) Red Cell Distribution Width 11.2 % (11.6-14.8) L Platelet Count 320 K/UL (150-450) Mean Platelet Volume 7.3 FL (6.5-10.1) Neutrophils (%) (Auto) 62.4 % (45.0-75.0) Lymphocytes (%) (Auto) 29.3 % (20.0-45.0) Monocytes (%) (Auto) 6.1 % (1.0-10.0) Eosinophils (%) (Auto) 1.4 % (0.0-3.0) Basophils (%) (Auto) 0.9 % (0.0-2.0) Prothrombin Time 10.2 SEC (9.30-11.50) Prothrombin Time INR 1.0 (0.9-1.1) PTT 28 SEC (23-33) Sodium Level 138 MMOL/L (136-145) Potassium Level 3.9 MMOL/L (3.5-5.1) Chloride Level 102 MMOL/L (98-107) Carbon Dioxide Level 32 MMOL/L (21-32) Anion Gap 4 mmol/L (5-15) L Blood Urea Nitrogen 13 mg/dL (7-18) Creatinine 1.0 MG/DL (0.55-1.30) Estimate Glomerular Filtration Rate > 60 mL/min (>60) Glucose Level 96 MG/DL (74-106) Calcium Level 9.2 MG/DL (8.5-10.1) Total Bilirubin 0.5 MG/DL (0.2-1.0) Aspartate Amino Transferase (AST) 13 U/L (15-37) L Alanine Aminotransferase (ALT) 22 U/L (12-78) Alkaline Phosphatase 95 U/L (46-116) Total Protein 7.5 G/DL (6.4-8.2) Albumin 3.7 G/DL (3.4-5.0) Globulin 3.8 g/dL Albumin/Globulin Ratio 1.0 (1.0-2.7) Lab Results Impression CBC: The patient has leukocytosis. This is a normal finding for his labs when compared to his history. Otherwise unremarkable Last Vital Signs Date Time Temp Pulse Resp B/P (MAP) Pulse Ox O2 Delivery O2 Flow Rate FiO2 05/16/17 14:14 97.5 20 106/66 97 Room Air 05/16/17 12:53 80 Status: improved Disposition: AGAINST MEDICAL ADVICE Condition: Serious Patient Instructions: Lymphedema, Deep Vein Thrombosis Additional Instructions: I discussed my findings with the patient. You have chosen to leave AGAINST MEDICAL ADVICE. He understand the risks associated with this including loss of limb, infection, and even . Please return to emergency Department if you change your mind or experience any symptoms. CIRO GAGNON May 16, 2017 15:21
[2017-05-17] MEDS ORDERED: ZOFRAN4 M1 ORAL (17:11)
[2017-05-17] MEDS ORDERED: TRUFORM COMPRE1 EAC1 MC (19:31)
== END 2017-05-16 14:26 | disposition left against medical advice (07) ==
LOC: EMR 13:29
DX: M79.89 Other specified soft tissue disorders (principal); Z88.0 Allergy status to penicillin; Z88.2 Allergy status to sulfonamides
CPT/HCPCS: 36415; 80053; 85025; 85610; 85730; 99283

== ENCOUNTER 2017-05-17 17:04 | Emergency (ER) | payer MEDICAID ==
[~2017-05-17] VITALS: Ht 170.2 cm; Wt 94.3 kg
[2017-05-17] MEDS ORDERED: ZOFRAN4 M1 ORAL (17:11)
[2017-05-17 17:18] VITALS: BP 110/60
[2017-05-17] MEDS ORDERED: TRUFORM COMPRE1 EAC1 MC (19:31)
[2017-05-17 19:36] VITALS: BP 115/68
--- NOTE | 2017-05-17 21:16 | Emergency Room Report ---
History of Present Illness General Chief Complaint: Pain Source: Patient Present Illness [facility] The patient is a 32-year-old male presenting for right leg swelling. Please note the patient was seen here yesterday for the same complaint and extensive testing was done but the patient chose to leave before having the venous duplex. He is now returning for this test. He states that he stands all day without much movement. Pain is an 8/10 dull ache and does not radiate. Pain better with elevation of the leg. He denies history of smoking. He denies any injury to the leg. He denies any other symptoms Allergies: Coded Allergies: PENICILLINS (Verified Allergy, Unknown, 07/20/16) SULFAMETHOXAZOLE (Verified Allergy, Unknown, 07/20/16) TRIMETHOPRIM (Verified Allergy, Unknown, 07/20/16) Patient History Past Medical History: see triage record Pertinent Family History: none Reviewed Nursing Documentation: PMH: Agreed, PSxH: Agreed Nursing Documentation-PMH Past Medical History: No Stated History Hx Cardiac Problems: No Hx Cancer: No Hx Gastrointestinal Problems: Yes - Vomitting Hx Neurological Problems: No Review of Systems All Other Systems: negative except mentioned in HPI Physical Exam Vital Signs Date Time Temp Pulse Resp B/P (MAP) Pulse Ox O2 Delivery O2 Flow Rate FiO2 05/17/17 17:07 97.9 95 17 110/60 98 Room Air Sp02 EP Interpretation: reviewed, normal General Appearance: no apparent distress, alert, GCS 15, non-toxic Head: normocephalic, atraumatic Eyes: bilateral eye normal inspection, bilateral eye PERRL ENT: hearing grossly normal, normal pharynx, no angioedema, normal voice Musculoskeletal: back normal, gait/station normal, normal range of motion, calf tenderness - distal mid calf, swelling - R lower leg, tender Neurologic: alert, oriented x3, responsive, motor strength/tone normal, sensory intact, speech normal Psychiatric: judgement/insight normal, memory normal, mood/affect normal, no suicidal/homicidal ideation Skin: other - many varicosities of the R lower leg Lymphatic: no adenopathy Medical Decision Making PA Attestation Dr. Campbell is my supervising physician. Patient management was discussed with my supervising physician Diagnostic Impression: Primary Impression: Leg swelling ER Course The patient is a 32-year-old male presenting for right leg swelling. Differential diagnoses considered but not limited to: DVT, varicose veins, lymphedema, cellulitis, muscle strain Physical exam: Afebrile. No apparent distress. No tachycardia or tachypnea Right leg: There are many varicosities. No erythema. There is 1+ nonpitting edema to the entire calf. 2+ nonpitting edema to the ankle. There is tenderness to palpation over the distal mid calf. Lungs are clear to auscultation bilaterally Blood work was done yesterday and unremarkable DVT study essentially negative. He will be discharged home with prescription for compression stockings. ER precautions are given CT/MRI/US Diagnostic Results CT/MRI/US Diagnostic Results : Imaging Test Ordered: venous duplex Impression Unremarkable. No DVT Last Vital Signs Date Time Temp Pulse Resp B/P (MAP) Pulse Ox O2 Delivery O2 Flow Rate FiO2 05/17/17 19:36 97.9 90 15 115/68 100 Room Air Status: improved Disposition: HOME, SELF-CARE Condition: Improved Scripts Comp.stocking,Knee,Regular,Med (Truform Compression Stocking) 1 Each Each EACH , #4 Prov: CIRO GAGNON 05/17/17 Patient Instructions: Varicose Veins, Vascular Ultrasound Additional Instructions: I discussed my findings with the patient. All questions and concerns have been answered. Treatment and medication compliance have been addressed. I advised the patient that they need to follow up with PMD in 3-5 days. Return to ED if symptoms worsen, new symptoms arise, or if needed for any reason. Patient verbalized understanding of discharge instructions. CIRO GAGNON May 17, 2017 21:16
--- NOTE | 2017-05-22 11:01 | Diagnostic Imaging Report ---
APPROVED REPORT CPT Code: 72492 Present Symptoms Comments: Swelling RIGHT LEG: Venous imaging reveals a patent deep venous system. There is no evidence of thrombus within the femoral, popliteal or tibial segments. The greater saphenous vein is also within normal limits. Doppler indicates normal spontaneous flow within these segments.
== END 2017-05-17 19:36 | disposition home or self-care (01) ==
LOC: EMR 17:27
DX: R60.9 Edema, unspecified (principal); Z88.0 Allergy status to penicillin; Z88.1 Allergy status to other antibiotic agents; Z88.2 Allergy status to sulfonamides
CPT/HCPCS: 93971; 99283

== ENCOUNTER 2017-07-03 20:57 | Emergency (ER) | payer MEDICAID ==
[~2017-07-03] VITALS: Ht 170.2 cm; Wt 93.9 kg
[~2017-07-03 20:57] MED LIST changes: +TRUFORM COMPRE1 EAC1 MC; +ZOFRAN4 M1 ORAL
[2017-07-03 21:10] VITALS: BP 110/74
[2017-07-03] MEDS ORDERED: IBUPROFEN600 MG ORAL (21:13)
--- NOTE | 2017-07-03 21:13 | Emergency Room Report ---
History of Present Illness General Chief Complaint: Sore Throat Source: Patient Present Illness HPI Is a 32-year-old male with no past medical history. He presents with chief complaint of sore throat. Onset this afternoon. Slight congestion. No cough no fever. No drooling. Has not anything for this. Pain is 7/10. Worse with swallowing. Allergies: Coded Allergies: PENICILLINS (Verified Allergy, Unknown, 07/20/16) SULFAMETHOXAZOLE (Verified Allergy, Unknown, 07/20/16) TRIMETHOPRIM (Verified Allergy, Unknown, 07/20/16) Patient History Past Medical History: see triage record, old chart reviewed Past Surgical History: none Pertinent Family History: none Social History: Denies: smoking Immunizations: other Reviewed Nursing Documentation: PMH: Agreed, PSxH: Agreed Nursing Documentation-PMH Hx Cardiac Problems: No Hx Cancer: No Hx Gastrointestinal Problems: Yes - Vomitting Hx Neurological Problems: No Review of Systems Eye: Denies: eye pain, blurred vision ENT: Reports: throat pain, Denies: ear pain, nose congestion, throat swelling Respiratory: Denies: cough, shortness of breath Cardiovascular: Denies: chest pain, palpitations Gastrointestinal: Denies: abdominal pain, diarrhea, nausea, vomiting Musculoskeletal: Denies: back pain, joint pain Skin: Denies: rash Neurological: Denies: headache, numbness Endocrine: Denies: increased thirst, increased urine Hematologic/Lymphatic: Denies: easy bruising All Other Systems: negative except mentioned in HPI Physical Exam Vital Signs Date Time Temp Pulse Resp B/P (MAP) Pulse Ox O2 Delivery O2 Flow Rate FiO2 07/03/17 21:03 97.9 85 12 110/74 96 Room Air vitals normal Sp02 EP Interpretation: reviewed, normal General Appearance: well appearing, no apparent distress, alert Head: normocephalic, atraumatic Eyes: bilateral eye PERRL, bilateral eye EOMI ENT: hearing grossly normal, pharyngeal erythema Neck: full range of motion, supple, no meningismus Respiratory: chest non-tender, lungs clear, normal breath sounds Cardiovascular #1: regular rate, rhythm, no murmur Gastrointestinal: normal bowel sounds, non tender, no mass, no organomegaly, no bruit, non-distended Musculoskeletal: back normal, gait/station normal, normal range of motion Psychiatric: mood/affect normal Skin: warm/dry Medical Decision Making Diagnostic Impression: Primary Impression: Acute viral pharyngitis ER Course Patient presents with a pharyngitis. Most likely viral in nature. Looks well. No evidence of strep throat. We'll discharge home. No evidence of retropharyngeal abscess, peritonsillar abscess or Fermin angina. Last Vital Signs Date Time Temp Pulse Resp B/P (MAP) Pulse Ox O2 Delivery O2 Flow Rate FiO2 07/03/17 21:03 97.9 85 12 110/74 96 Room Air Status: improved Disposition: HOME, SELF-CARE Condition: Stable Scripts Ibuprofen* (MOTRIN*) 600 Mg Tablet 600 MG ORAL THREE TIMES A DAY, #30 TAB 0 Refills Prov: AIRAM KAUR M.D. 07/03/17 Patient Instructions: Sore Throat Additional Instructions: Followup with your Dr. 7 days. Salt water gargle. Increase fluid. Return if worse. AIRAM KAUR M.D. Jul 03, 2017 21:13
[2017-07-03 21:14] VITALS: BP 110/74
== END 2017-07-03 21:35 | disposition home or self-care (01) ==
LOC: EMR 21:11
DX: J02.9 Acute pharyngitis, unspecified (principal); Z88.2 Allergy status to sulfonamides; Z88.0 Allergy status to penicillin
CPT/HCPCS: 99283